=== PATIENT | female | born 1955 | race Two or more races ===

== ENCOUNTER 2017-10-04 18:48 | Inpatient (IN) | payer SELFPAY ==
[2017-10-04 19:36] LABS: ADD MAN DIFF? NO
[2017-10-04 19:38] LABS: BASE EXCESS ABG 3 mmol/L (-3-3); BASO # 0.1 x10^3/uL (0.0-0.2); BASO % 1 % (0-3); EOS # 0.1 x10^3/uL (0.0-0.7); EOS % 1 % (0-3); HCO3 ABG 30 mmol/L (21-28); HEMATOCRIT 31.9 % (36.0-47.0); LYMPH # 1.7 x10^3/uL (1.0-4.8); LYMPH % 19 % (24-48); MEAN CORPUSCULAR HEMOGLOBIN 24 pg (25-35); MEAN CORPUSCULAR HGB CONC 31 g/dL (31-37); MEAN CORPUSCULAR VOLUME 78 fL (79-100); MONO # 0.7 x10^3/uL (0.0-1.1); MONO % 8 % (0-9); NEUT # 6.3 x10^3uL (1.8-7.7); NEUT % 70 % (31-73); PH ABG 7.31 (7.35-7.45); PLATELET COUNT 223 x10^3/uL (140-400); PO2 ABG 82 mmHg (65-108); RED BLOOD COUNT 4.11 x10^6/uL (3.50-5.40); RED CELL DISTRIBUTION WIDTH 17.6 % (11.5-14.5); SAT O2 ABG 94 % (92-99)
[2017-10-04 19:48] LABS: ANION GAP 8 (6-14); BLOOD UREA NITROGEN 32 mg/dL (7-20); BUN/CREATININE RATIO 32 (6-20); CALCIUM 8.7 mg/dL (8.5-10.1); CARBON DIOXIDE 30 mmol/L (21-32); CHLORIDE 98 mmol/L (98-107); GFR 56.2; GLUCOSE 208 mg/dL (70-99); POTASSIUM 5.4 mmol/L (3.5-5.1); SODIUM 136 mmol/L (136-145)
[2017-10-04 19:49] LABS: TROPONIN BY ISTAT 0.09 ng/ml (<0.08)
[2017-10-04 19:53] LABS: ALBUMIN 3.3 g/dL (3.4-5.0); ALBUMIN/GLOBULIN RATIO 0.8 (1.0-1.7); ALK PHOS 70 U/L (46-116); ALT (SGPT) 51 U/L (14-59); AST (SGOT) 42 U/L (15-37); PCO2 ABG 61 mmHg (35-46); TOTAL BILIRUBIN 0.4 mg/dL (0.2-1.0); TOTAL PROTEIN 7.7 g/dL (6.4-8.2)
[2017-10-04 19:58] LABS: TROPONINI 0.125 ng/mL (0.000-0.055)
[2017-10-04 19:59] LABS: NT-PRO BNP 870 pg/mL (0-124)
[2017-10-04] MEDS: ASPIRIN CHEWABLE 81 MG TABLET. PO (20:07)
[2017-10-04] MEDS: FUROSEMIDE 40 MG/4 ML VIAL. IVP (20:30)
[2017-10-04] MEDS ORDERED: IBUPROFEN 400 MG TABLET. PO (20:45)
[2017-10-04] MEDS ORDERED: diphenhydrAMINE HCL 25 MG CAPSULE PO (20:45)
[2017-10-04] MEDS ORDERED: LABETALOL 20 MG/4 ML DISP.SYRIN. IVP (20:45)
[2017-10-04] MEDS ORDERED: ACETAMINOPHEN 500 MG TABLET PO (20:45)
[2017-10-04] MEDS ORDERED: HYDROcodone/APAP 5/325MG 1 TAB TABLET PO (20:45)
[2017-10-04] MEDS ORDERED: ONDANSETRON PF 4 MG/2 ML VIAL. IV (20:45)
[2017-10-04 23:02] LABS: POC GLUCOSE 174 mg/dL (70-99)
[2017-10-05 01:18] LABS: TROPONINI 0.172 ng/mL (0.000-0.055)
[2017-10-05 03:32] LABS: ANION GAP 8 (6-14); BLOOD UREA NITROGEN 32 mg/dL (7-20); CALCIUM 9.1 mg/dL (8.5-10.1); CARBON DIOXIDE 31 mmol/L (21-32); CHLORIDE 100 mmol/L (98-107); CREATININE 0.9 mg/dL (0.6-1.0); GFR 63.4; GLUCOSE 125 mg/dL (70-99); POTASSIUM 4.9 mmol/L (3.5-5.1); SODIUM 139 mmol/L (136-145)
[2017-10-05 03:43] LABS: TROPONINI 0.187 ng/mL (0.000-0.055)
[2017-10-05] MEDS ORDERED: DEXTROSE 50% 25 GM / 50ML DISP.SYRIN. IV (10:45)
[2017-10-05 11:40] LABS: POC GLUCOSE 107 mg/dL (70-99)
[2017-10-05] MEDS: INSULIN ASPART 300 UNITS/3 ML INSULN.PEN SQ ×2 (12:00→16:43)
[2017-10-05] MEDS: amLODIPine BESYLATE 5 MG TABLET PO (14:00)
[2017-10-05] MEDS: LOSARTAN POTASSIUM 50 MG TABLET. PO (14:00)
[2017-10-05 14:46] LABS: % SAT IRON 4 % (15-34); IRON,SERUM 21 ug/dL (50-170)
[2017-10-05 14:58] LABS: VITAMIN-B12 781 pg/mL (247-911)
[2017-10-05] MEDS: BISACODYL 5 MG TABLET.DR. PO (15:52)
[2017-10-05] MEDS: GABAPENTIN 300 MG CAPSULE. PO ×2 (15:52→20:52)
[2017-10-05] MEDS: CYANOCOBALAMIN (VITAMIN B-12) 1,000 MCG TABLET. PO (15:53)
[2017-10-05] MEDS: CHOLECALCIFEROL (VITAMIN D3) 1,000 UNIT TABLET PO (15:53)
[2017-10-05] MEDS: CITALOPRAM 20 MG TABLET. PO (15:54)
[2017-10-05] MEDS: ENOXAPARIN 40 MG/0.4 ML SYRINGE. SQ ×2 (15:54→20:52)
[2017-10-05] MEDS: FUROSEMIDE 40 MG/4 ML VIAL. IVP (15:56)
[2017-10-05 16:42] LABS: POC GLUCOSE 99 mg/dL (70-99)
[2017-10-05 18:40] LABS: POC GLUCOSE 210 mg/dL (70-99)
[2017-10-05 21:01] LABS: POC GLUCOSE 230 mg/dL (70-99)
[2017-10-05 21:08] LABS: BASE EXCESS ABG 10 mmol/L (-3-3); HCO3 ABG 37 mmol/L (21-28); PO2 ABG 76 mmHg (65-108); SAT O2 ABG 94 % (92-99)
[2017-10-05 21:09] LABS: PCO2 ABG 66 mmHg (35-46); PH ABG 7.36 (7.35-7.45)
[2017-10-05 21:10] LABS: FIO2 ABG 36
[2017-10-06 02:09] LABS: CHOLESTEROL 161 mg/dL (0-200); HDLC 48 mg/dL (40-60); LDLC 100 mg/dL (0-100); NON-HDL CHOLESTEROL 113 mg/dL (0-129); TRIGLYCERIDES 67 mg/dL (0-150); VLDLC 13 mg/dL (0-40)
[2017-10-06 02:10] LABS: CHOLESTEROL/HDL RATIO 3.4
[2017-10-06 07:13] LABS: POC GLUCOSE 129 mg/dL (70-99)
[2017-10-06] MEDS: INSULIN ASPART 300 UNITS/3 ML INSULN.PEN SQ ×3 (08:00→17:00)
[2017-10-06 08:09] LABS: POC GLUCOSE 147 mg/dL (70-99)
[2017-10-06] MEDS: CHOLECALCIFEROL (VITAMIN D3) 1,000 UNIT TABLET PO (09:26)
[2017-10-06] MEDS: CYANOCOBALAMIN (VITAMIN B-12) 1,000 MCG TABLET. PO (09:26)
[2017-10-06] MEDS: CITALOPRAM 20 MG TABLET. PO (09:26)
[2017-10-06] MEDS: LOSARTAN POTASSIUM 50 MG TABLET. PO (09:26)
[2017-10-06] MEDS: amLODIPine BESYLATE 5 MG TABLET PO (09:27)
[2017-10-06] MEDS: GABAPENTIN 300 MG CAPSULE. PO ×3 (09:27→21:13)
[2017-10-06] MEDS: POLYETHYLENE GLYCOL 3350 17 GM PACKET. PO (09:27)
[2017-10-06] MEDS: ENOXAPARIN 40 MG/0.4 ML SYRINGE. SQ ×2 (09:31→21:13)
[2017-10-06] MEDS: FUROSEMIDE 40 MG/4 ML VIAL. IVP ×3 (09:31→21:13)
[2017-10-06 11:55] LABS: POC GLUCOSE 253 mg/dL (70-99)
[2017-10-06] MEDS: FERROUS SULFATE 325 MG TABLET. PO (15:31)
[2017-10-06 16:50] LABS: POC GLUCOSE 128 mg/dL (70-99)
[2017-10-06 16:53] LABS: BASE EXCESS ABG 11 mmol/L (-3-3); HCO3 ABG 38 mmol/L (21-28); PH ABG 7.38 (7.35-7.45); PO2 ABG 68 mmHg (65-108); SAT O2 ABG 91 % (92-99)
[2017-10-06 16:56] LABS: FIO2 ABG 36; PCO2 ABG 67 mmHg (35-46)
[2017-10-06 20:40] LABS: POC GLUCOSE 179 mg/dL (70-99)
[2017-10-07 04:42] LABS: ADD MAN DIFF? NO
[2017-10-07 05:12] LABS: ANION GAP 5 (6-14); BLOOD UREA NITROGEN 29 mg/dL (7-20); CALCIUM 9.4 mg/dL (8.5-10.1); CARBON DIOXIDE 39 mmol/L (21-32); CHLORIDE 100 mmol/L (98-107); GLUCOSE 142 mg/dL (70-99); POTASSIUM 4.2 mmol/L (3.5-5.1); SODIUM 144 mmol/L (136-145)
[2017-10-07 05:15] LABS: BASO % 1 % (0-3); EOS # 0.2 x10^3/uL (0.0-0.7); EOS % 3 % (0-3); HEMATOCRIT 32.8 % (36.0-47.0); LYMPH # 1.5 x10^3/uL (1.0-4.8); LYMPH % 25 % (24-48); MEAN CORPUSCULAR HEMOGLOBIN 24 pg (25-35); MEAN CORPUSCULAR HGB CONC 31 g/dL (31-37); MEAN CORPUSCULAR VOLUME 78 fL (79-100); MONO # 0.7 x10^3/uL (0.0-1.1); MONO % 12 % (0-9); NEUT # 3.6 x10^3uL (1.8-7.7); NEUT % 59 % (31-73); PLATELET COUNT 223 x10^3/uL (140-400); RED BLOOD COUNT 4.23 x10^6/uL (3.50-5.40); RED CELL DISTRIBUTION WIDTH 17.8 % (11.5-14.5); WHITE BLOOD COUNT 6.1 x10^3/uL (4.0-11.0)
[2017-10-07] MEDS: INSULIN ASPART 300 UNITS/3 ML INSULN.PEN SQ ×3 (08:00→17:00)
[2017-10-07 08:12] LABS: POC GLUCOSE 158 mg/dL (70-99)
[2017-10-07] MEDS: CITALOPRAM 20 MG TABLET. PO (11:58)
[2017-10-07] MEDS: CHOLECALCIFEROL (VITAMIN D3) 1,000 UNIT TABLET PO (11:58)
[2017-10-07] MEDS: GABAPENTIN 300 MG CAPSULE. PO ×3 (11:58→20:26)
[2017-10-07] MEDS: CYANOCOBALAMIN (VITAMIN B-12) 1,000 MCG TABLET. PO (11:58)
[2017-10-07] MEDS: amLODIPine BESYLATE 5 MG TABLET PO (11:59)
[2017-10-07] MEDS: FERROUS SULFATE 325 MG TABLET. PO (11:59)
[2017-10-07] MEDS: LOSARTAN POTASSIUM 50 MG TABLET. PO (12:01)
[2017-10-07] MEDS: POLYETHYLENE GLYCOL 3350 17 GM PACKET. PO ×2 (12:02→20:26)
[2017-10-07] MEDS: FUROSEMIDE 40 MG/4 ML VIAL. IVP ×2 (12:03→16:57)
[2017-10-07] MEDS: ENOXAPARIN 40 MG/0.4 ML SYRINGE. SQ ×2 (12:15→20:27)
[2017-10-07 12:21] LABS: POC GLUCOSE 235 mg/dL (70-99)
[2017-10-07] MEDS: LUBIPROSTONE 8 MCG CAPSULE PO (16:58)
[2017-10-07 17:14] LABS: POC GLUCOSE 166 mg/dL (70-99)
[2017-10-07 21:00] LABS: POC GLUCOSE 239 mg/dL (70-99)
[2017-10-08] MEDS: FUROSEMIDE 40 MG/4 ML VIAL. IVP (08:43)
[2017-10-08] MEDS: CYANOCOBALAMIN (VITAMIN B-12) 1,000 MCG TABLET. PO (08:43)
[2017-10-08] MEDS: amLODIPine BESYLATE 5 MG TABLET PO (08:43)
[2017-10-08] MEDS: FERROUS SULFATE 325 MG TABLET. PO (08:43)
[2017-10-08] MEDS: ENOXAPARIN 40 MG/0.4 ML SYRINGE. SQ (08:43)
[2017-10-08] MEDS: GABAPENTIN 300 MG CAPSULE. PO (08:43)
[2017-10-08] MEDS: POLYETHYLENE GLYCOL 3350 17 GM PACKET. PO (08:43)
[2017-10-08] MEDS: CITALOPRAM 20 MG TABLET. PO (08:44)
[2017-10-08] MEDS: LUBIPROSTONE 8 MCG CAPSULE PO (08:44)
[2017-10-08] MEDS: LOSARTAN POTASSIUM 50 MG TABLET. PO (08:44)
[2017-10-08] MEDS: CHOLECALCIFEROL (VITAMIN D3) 1,000 UNIT TABLET PO (08:44)
[2017-10-08 08:46] LABS: POC GLUCOSE 152 mg/dL (70-99)
[2017-10-08] MEDS: INSULIN ASPART 300 UNITS/3 ML INSULN.PEN SQ (09:02)
[2017-10-08 11:43] LABS: POC GLUCOSE 251 mg/dL (70-99)
[2017-10-09] MEDS ORDERED: FUROSEMIDE 40 MG TABLET. PO (09:00)
== END 2017-10-08 16:39 | disposition home or self-care (01) | DRG 291 ==
LOC: ER 18:48 → 2 SOUTH 20:35
PROC: 5A09357 Assistance with Respiratory Ventilation, Less than 24 Consecutive Hours, Continuous Positive Airway Pressure (ICD-10-PCS; principal; 2017-10-05)
PROC: 5A09357 Assistance with Respiratory Ventilation, Less than 24 Consecutive Hours, Continuous Positive Airway Pressure (ICD-10-PCS; 2017-10-06)
PROC: 5A09357 Assistance with Respiratory Ventilation, Less than 24 Consecutive Hours, Continuous Positive Airway Pressure (ICD-10-PCS; 2017-10-07)
PROC: 5A09357 Assistance with Respiratory Ventilation, Less than 24 Consecutive Hours, Continuous Positive Airway Pressure (ICD-10-PCS; 2017-10-08)
DX: I11.0 Hypertensive heart disease with heart failure (principal); J96.21 Acute and chronic respiratory failure with hypoxia; E44.1 Mild protein-calorie malnutrition; E66.01 Morbid (severe) obesity due to excess calories; D50.9 Iron deficiency anemia, unspecified; E11.9 Type 2 diabetes mellitus without complications; J96.22 Acute and chronic respiratory failure with hypercapnia; Z68.42 Body mass index [BMI] 45.0-49.9, adult; I50.41 Acute combined systolic (congestive) and diastolic (congestive) heart failure; E87.5 Hyperkalemia; E78.5 Hyperlipidemia, unspecified; F32.9 Major depressive disorder, single episode, unspecified; F41.9 Anxiety disorder, unspecified; G89.29 Other chronic pain; K59.00 Constipation, unspecified; Z80.9 Family history of malignant neoplasm, unspecified; Z83.3 Family history of diabetes mellitus
CPT/HCPCS: 36415; 36600; 71045; 74018; 80048; 80053; 80061; 82607; 82746; 82805; 82962; 83540; 83550; 83880; 84443; 84484; 85025; 93005; 93306; 94660; 94760; 96374; 97162-GP; 97165-GO; 97535-GO; 99285; 99285-25; J1650; J1815; J1940

== ENCOUNTER 2020-04-04 19:08 | Inpatient (IN) | payer SELFPAY ==
[~2020-04-04] VITALS: Ht 152.4 cm; Wt 85.9 kg
[~2020-04-04 19:08] MED LIST: AMLO1TAB95 PO; CHOL10003 PO; CITA40TA5 PO; CYAN-25 PO; FURO40TA4 PO; GABA300C18 PO; HYDR50TA6 PO; LISI-338 PO; LOSA-73 PO; METF10007 PO; NAPR-683 PO; OMEG1CAP38 PO
--- NOTE | 2020-04-04 23:17 | PHYS DOC ---
Past Medical History Past Medical History: Diabetes-Type II, Hypertension, Liver Disease, Other Additional Past Medical Histor: NEUROPATHY Past Surgical History: Other Additional Past Surgical Histo: HERNIA REPAIR Smoking Status: Never Smoker Alcohol Use: None Drug Use: None General Adult EDM: Chief Complaint: DIZZY/LIGHT HEADED HPI: HPI: The history was obtained from the patient and daughter. Patient is a 64-year-old female with PMH hyperlipidemia, hypertension, diabetes who presents with a chief complaint of lightheadedness. Daughter states the patient was seen at her primary care physician's office yesterday and had an outpatient hemoglo bin drawn. She states they were notified that her hemoglobin 7.3. She has no history of anemia. She does not take any blood thinners. She does note some lightheadedness particularly with standing and exertion. Denies chest pain. Denies any known blood in the stool. Denies any history of peptic ulcer disease. Denies any urinary symptoms. States she is never received a trans fusion in the past. States her primary care physician encouraged to report to the emergency department for further care. No other complaints. Review of Systems: Review of Systems: Constitutional: Denies fever or chills. [] Eyes: Denies change in visual acuity. [] HENT: Denies nasal congestion or sore throat. [] Respiratory: Denies cough or shortness of breath. [] Cardiovascular: Denies chest pain or edema. [] GI: Denies abdominal pain, nausea, vomiting, bloody stools or diarrhea. [] : Denies dysuria. [] Musculoskeletal: Denies back pain or joint pain. [] Integument: Denies rash. [] Neurologic: Positive for lightheadedness Endocrine: Denies polyuria or polydipsia. [] Lymphatic: Denies swollen glands. [] Psychiatric: Denies depression or anxiety. [] Heart Score: Risk Factors: Risk Factors: DM, Current or recent (<one month) smoker, HTN, HLP, family history of CAD, obesity. Risk Scores: Score 0 - 3: 2.5% MACE over next 6 weeks - Discharge Home Score 4 - 6: 20.3% MACE over next 6 weeks - Admit for Clinical Observation Score 7 - 10: 72.7% MACE over next 6 weeks - Early Invasive Strategies Allergies: Allergies: Allergies Coded Allergies Type Severity Reaction Last Updated Verified No Known Drug Allergies 3/4/18 No Physical Exam: PE: Constitutional: Well developed, well nourished, no acute distress, non-toxic appearance. [] HENT: Normocephalic, atraumatic, bilateral external ears normal, oropharynx moist, no oral exudates, nose normal. [] Eyes: PERRLA, EOMI, conjunctiva normal, no discharge. [] Neck: Normal range of motion, no tenderness, supple, no stridor. [] Cardiovascular:Heart rate regular rhythm, no murmur [] Lungs & Thorax: Bilateral breath sounds clear to auscultation [] Abdomen: Soft, nontender, nonacute abdomen. No involuntary guarding or rigidity noted. No acute peritonitis. SERVANDO negative for gross blood. Skin: Warm, dry, no erythema, no rash. [] Back: No tenderness, no CVA tenderness. [] Extremities: No tenderness, no cyanosis, no clubbing, ROM intact, no edema. [] Neurologic: Alert and oriented X 3, normal motor function, normal sensory fu nction, no focal deficits noted. [] Psychologic: Affect normal, judgement normal, mood normal. [] Current Patient Data: Labs: Laboratory Tests Test 04/04/20 23:15 White Blood Count 10.4 x10^3/uL Red Blood Count 4.02 x10^6/uL Hemoglobin 7.6 g/dL Hematocrit 24.6 % Mean Corpuscular Volume 61 fL Mean Corpuscular Hemoglobin 19 pg Mean Corpuscular Hemoglobin Concent 31 g/dL Red Cell Distribution Width 19.9 % Platelet Count 352 x10^3/uL Neutrophils (%) (Auto) 60 % Lymphocytes (%) (Auto) 27 % Monocytes (%) (Auto) 9 % Eosinophils (%) (Auto) 3 % Basophils (%) (Auto) 1 % Neutrophils # (Auto) 6.2 x10^3/uL Lymphocytes # (Auto) 2.8 x10^3/uL Monocytes # (Auto) 0.9 x10^3/uL Eosinophils # (Auto) 0.3 x10^3/uL Basophils # (Auto) 0.1 x10^3/uL Platelet Estimate Pending Sodium Level 136 mmol/L Potassium Level 3.6 mmol/L Chloride Level 99 mmol/L Carbon Dioxide Level 32 mmol/L Anion Gap 5 Blood Urea Nitrogen 21 mg/dL Creatinine 1.0 mg/dL Estimated GFR (Cockcroft-Gault) 55.6 Glucose Level 223 mg/dL Calcium Level 8.7 mg/dL Vital Signs: Vital Signs Date Time Temp Pulse Resp B/P (MAP) Pulse Ox O2 Delivery O2 Flow Rate FiO2 04/04/20 21:40 62 18 96 04/04/20 19:48 98.6 123/63 (83) Room Air 98.6 EKG: EKG: EKG consistent with normal sinus rhythm. Ventricular rate of 99 bpm. [place] normal. Intervals normal. No acute ischemic changes appreciated. [] Radiology/Procedures: Radiology/Procedures: [][facility] [address] [place] [address] IMAGING REPORT Signed PATIENT: GRAY SHIELDS ACCOUNT: [id number] : 1955 LOCATION: ER AGE: 64 SEX: F EXAM STATUS: REG ER ORD. PHYSICIAN: SANTIAGO BRITO DO REASON: lightheaded PROCEDURE: CHEST AP ONLY INDICATION: Reason: lightheaded / Spl. Instructions: / History: COMPARISON: October 06, 2017 FINDINGS: Single view of chest obtained. Enlarged cardiomediastinal silhouette. No definite new region of airspace consolidation or pulmonary edema. Degenerative changes left shoulder IMPRESSION: * Enlarged cardiomediastinal silhouette without definite focal airspace consolidation. Electronically signed by: Tevin Jacobs MD (04/04/2020 11:30 PM) [id number] DICTATED and SIGNED BY: TEVIN JACOBS MD DATE: 04/04/20 4160 Course & Med Decision Making: Course & Med Decision Making Pertinent Labs and Imaging studies reviewed. (See chart for details) Patient is a well-appearing 64-year-old female who presents with chief complaint of lab abnormality. She was noted to be anemic with a hemoglobin of 7.3 as an outpatient. She is never been anemic before. Denies any blood in her stool. Initial vital signs unremarkable. Exam noted above. Hemoglobin level today 7.6. No indications for emergent transfusion however she does warrant work-up for her symptomatic anemia. Patient will be hospitalized for further care. Keren Disclaimer: Keren Disclaimer: This electronic medical record was generated, in whole or in part, using a voice recognition dictation system. Departure Departure Impression: Primary Impression: Anemia Qualified Codes: D64.9 - Anemia, unspecified Additional Impression: Lightheaded Disposition: 09 ADMITTED INPATIENT Condition: STABLE Referrals: TERI CALDERON (PCP) Justicifation of Admission Dx: Justifications for Admission: Justification of Admission Dx: Yes Comments: symptomatic anemia SANTIAGO BRITO DO Apr 04, 2020 23:17
[2020-04-04 23:25] LABS: BASO # 0.1 x10^3/uL (0.0-0.2); BASO % 1 % (0-3); EOS # 0.3 x10^3/uL (0.0-0.7); EOS % 3 % (0-3); HEMATOCRIT 24.6 % (36.0-47.0); HEMOGLOBIN 7.6 g/dL (12.0-15.5); LYMPH # 2.8 x10^3/uL (1.0-4.8); LYMPH % 27 % (24-48); MEAN CORPUSCULAR HEMOGLOBIN 19 pg (25-35); MEAN CORPUSCULAR HGB CONC 31 g/dL (31-37); MEAN CORPUSCULAR VOLUME 61 fL (79-100); MONO # 0.9 x10^3/uL (0.0-1.1); MONO % 9 % (0-9); NEUT # 6.2 x10^3/uL (1.8-7.7); NEUT % 60 % (31-73); PLATELET COUNT 352 x10^3/uL (140-400); RED BLOOD COUNT 4.02 x10^6/uL (3.50-5.40); RED CELL DISTRIBUTION WIDTH 19.9 % (11.5-14.5); WHITE BLOOD COUNT 10.4 x10^3/uL (4.0-11.0)
[2020-04-04 23:32] LABS: CALCIUM 8.7 mg/dL (8.5-10.1); GFR 55.6; POTASSIUM 3.6 mmol/L (3.5-5.1)
--- NOTE | 2020-04-04 23:33 | RAD ---
INDICATION: Reason: lightheaded / Spl. Instructions: / History: COMPARISON: October 06, 2017 FINDINGS: Single view of chest obtained. Enlarged cardiomediastinal silhouette. No definite new region of airspace consolidation or pulmonary edema. Degenerative changes left shoulder IMPRESSION: * Enlarged cardiomediastinal silhouette without definite focal airspace consolidation. Electronically signed by: Isaac Knott MD (04/04/2020 11:30 PM) [id number]
[2020-04-04 23:47] LABS: BILIRUBIN,URINE NEGATIVE (NEG); CLARITY,URINE CLEAR; COLOR,URINE YELLOW; NITRITE,URINE NEGATIVE (NEG); PH,URINE 5.5 (<5.0-8.0); PROTEIN,URINE NEGATIVE (NEG-TRACE)
[2020-04-04 23:55] LABS: AMORPHOUS SEDIMENT,UR PRESENT /HPF; BACTERIA,URINE 0 /HPF (0-FEW); HYALINE CASTS, URINE MODERATE /HPF; RBC,URINE OCC /HPF (0-2); SQUAMOUS EPITHELIAL CELL,UR MOD /LPF
[2020-04-05 02:11] LABS: FECAL OB PT NEGATIVE (NEG)
[2020-04-05 03:00] VITALS: BP 128/58
[2020-04-05 05:11] LABS: ANISOCYTOSIS SLIGHT; HYPOCHROMIA MARKED; MICROCYTOSIS MARKED; PLT ESTIMATE ADEQUATE (ADEQUATE); POLYCHROMASIA SLIGHT
--- NOTE | 2020-04-05 05:46 | EKG ---
[facility] [address] [place] [address] Test Date: 2020-04-04 Test Time: 23:08:13 Pat Name: GRAY SHIELDS Department: Room: Gender: F [employer]: : 1955 Requested By: SANTIAGO BRITO Order Number: [id number] Reading MD: Measurements Intervals [place] Rate: 99 P: 7 DC: 150 QRS: 62 QRSD: 74 T: 26 QT: 330 QTc: 423 Interpretive Statements SINUS RHYTHM NORMAL ECG RI6.02 No previous ECG available for comparison
[2020-04-05] MEDS ORDERED: ASPI-886 PO (06:18)
[2020-04-05] MEDS ORDERED: ATOR20TA58 PO (06:18)
[2020-04-05] MEDS ORDERED: LOSA100T14 PO (06:18)
[2020-04-05] MEDS ORDERED: SITA1TAB11 PO (06:18)
[2020-04-05 07:00] VITALS: BP 143/49
[2020-04-05 07:22] LABS: BASO # 0.1 x10^3/uL (0.0-0.2); BASO % 1 % (0-3); EOS # 0.3 x10^3/uL (0.0-0.7); EOS % 4 % (0-3); LYMPH # 2.3 x10^3/uL (1.0-4.8); LYMPH % 30 % (24-48); MEAN CORPUSCULAR HEMOGLOBIN 19 pg (25-35); MEAN CORPUSCULAR HGB CONC 30 g/dL (31-37); MEAN CORPUSCULAR VOLUME 62 fL (79-100); MONO # 0.8 x10^3/uL (0.0-1.1); MONO % 10 % (0-9); NEUT # 4.4 x10^3/uL (1.8-7.7); NEUT % 56 % (31-73); PLATELET COUNT 306 x10^3/uL (140-400); RED BLOOD COUNT 3.75 x10^6/uL (3.50-5.40); RED CELL DISTRIBUTION WIDTH 19.6 % (11.5-14.5); WHITE BLOOD COUNT 7.8 x10^3/uL (4.0-11.0)
[2020-04-05 07:25] LABS: CALCIUM 8.4 mg/dL (8.5-10.1); CREATININE 0.8 mg/dL (0.6-1.0); POTASSIUM 3.7 mmol/L (3.5-5.1)
--- NOTE | 2020-04-05 07:41 | NUR ---
critical Hgb of 7 passed on to LETI Sawyer and LETI Beltran
--- NOTE | 2020-04-05 08:52 | PDOC1 ---
History and Physical Date of Admission Date of Admission DATE: 04/05/20 TIME: 08:52 Identification/Chief Complaint Chief Complaint Dizziness, shortness of breath Source Source: Caregiver, Chart review, Patient History of Present Illness History of Present Illness Ms Lopez is a 64yo F French-speaking only w/ PMHx CHF, HTN, HLD, DM2, OA, depression/anxiety, chronic back pain, hernia repair, Liver Disease who presents with a chief complaint of lightheadedness. Daughter states the patient was seen at her primary care physician's office 04/03/2020 and had an outpatient hemoglobin drawn. She states they were notified that her hemoglobin 7.3. She has no history of anemia. She does not take any blood thinners. She does note some lightheadedness particularly with standing and exertion. Denies chest pain. Denies any known blood in the stool. Denies any history of peptic ulcer disease. Denies any urinary symptoms. States she has never received a transfusion in the past. States her primary care physician encouraged to report to the emergency department for further care. No other complaints. EKG consistent with normal sinus rhythm. Ventricular rate of [address] [place] normal. Intervals normal. No acute ischemic changes appreciated. Hemoglobin level in ED 7.6. Now 7 after overnight observation. Hemoccult stool negative. Iron studies consistent with iron deficiency anemia. Had no vaginal bleeding has been postmenopausal since 2005. MCV was notably 61 labs NA 141, K3.7, BUN 18, CR 0.8, glucose 158. She does note a history of ovarian cancer in her mother and her sister, no known history of colon cancer. Past Medical History Cardiovascular: HTN Endocrine: Diabetes Past Surgical History Past Surgical History: Hernia Repair Family History Family History: Cancer, Diabetes Social History Smoke: No ALCOHOL: none Drugs: None Current Problem List Problem List Problems Medical Problems: (1) Anemia Status: Acute (2) Lightheaded Status: Acute Current Medications Current Medications Current Medications Ondansetron HCl (Zofran) 4 mg PRN Q8HRS PRN IV NAUSEA/VOMITING; Start 04/05/20 at 00:00; Stop 04/05/20 at 08:51; Status DC Ondansetron HCl (Zofran) 4 mg PRN Q4HRS PRN IV NAUSEA/VOMITING; Start 04/05/20 at 09:00; Status UNV Iron Sucrose 200 mg/Sodium Chloride 110 ml @ 55 mls/hr 1X ONCE IV ; Start 04/05/20 at 09:00; Stop 04/05/20 at 10:59; Status UNV Active Scripts Active Furosemide 40 Mg Tablet 40 Mg PO DAILY 30 Days Reported Janumet 50-1,000 Mg Tablet (Sitagliptin Phos/Metformin Hcl) 1 Each Tablet 1 Tab PO BIDWMEALS Losartan Potassium 100 Mg Tablet 100 Mg PO DAILY Atorvastatin Calcium 20 Mg Tablet 20 Mg PO HS Aspirin Ec (Aspirin) 81 Mg Tablet.dr 1 Tab PO DAILY Hydrochlorothiazide Tablet (Hydrochlorothiazide) 50 Mg Tablet 25 Mg PO DAILY Allergies Allergies: Coded Allergies: No Known Drug Allergies (Unverified , 10/04/17) ROS General: No: Chills, Night Sweats, Fatigue, Malaise, Appetite, Other PSYCHOLOGICAL ROS: No: Anxiety, Behavioral Disorder, Concentration difficultie, Decreased libido, Depression, Disorientation, Hallucinations, Hostility, Irritablity, Memory difficulties, Mood Swings, Obsessive thoughts, Physical abuse, Sexual abuse, Sleep disturbances, Suicidal ideation, Other Eyes: No Blurry vision, No Decreased vision, No Double vision, No Dry eyes, No Excessive tearing, No Eye Pain, No Itchy Eyes, No Loss of vision, No P hotophobia, No Scotomata, No Uses contacts, No Uses glasses, No Other HEENT: No: Heacaches, Visual Changes, Hearing change, Nasal congestion, Nasal discharge, Oral lesions, Sinus pain, Sore Throat, Epistaxis, Sneezing, Snoring, Tinnitus, Vertigo, Vocal changes, Other ALLERGY AND IMMUNOLOGY: No: Hives, Insect Bite Sensitivity, Itchy/Watery Eyes, Nasal Congestion, Post Nasal Drip, Seasonal Allergies, Other Hematological and Lymphatic: No: Bleeding Problems, Blood Clots, Blood Transfusions, Brusing, Night Sweats, Pallor, Swollen Lymph Nodes, Other ENDOCRINE: No: Breast Changes, Galactorrhea, Hair Pattern Changes, Hot Flashes, Malaise/lethargy, Mood Swings, Palpitations, Polydipsia/polyuria, Skin Changes, Temperature Intolerance, Unexpected Weight Changes, Other Breast: No New/Changing Breast Lumps, No Nipple changes, No Nipple discharge, No Other Respiratory: YES: Shortness of breath, SOB with excertion; No: Cough, Hemoptysis, Orthopnea, Pleuritic Pain, Sputum Changes, Stridor, Tachypnea, Wheezing, Other Cardiovascular: No Chest Pain, No Palpitations, No Orthopnea, No Paroxysmal Noc. Dyspnea, No Edema, No Lt Headedness, No Other Gastrointestinal: No Nausea, No Vomiting, No Abdominal Pain, No Diarrhea, No Constipation, No Melena, No Hematochezia, No Other Genitourinary: No Dysuria, No Frequency, No Incontinence, No Hematuria, No Retention, No Discharge, No Urgency, No Pain, No Flank Pain, No Other, No , No , No , No , No , No , No Musculoskeletal: No Gait Disturbance, No Joint Pain, No Joint Stiffness, No Joint Swelling, No Muscle Pain, No Muscular Weakness, No Pain In:, No Swelling In:, No Other Neurological: Yes Dizziness; No Behavorial Changes, No Bowel/Bladder ControlChng, No Confusion, No Gait Disturbance, No Headaches, No Impaired Coord/balance, No Memory Loss, No Numbness/Tingling, No Seizures, No Speech Problems, No Tremors, No Visual Changes, No Weakness, No Other Skin: No Dry Skin, No Eczema, No Hair Changes, No Lumps, No Mole Changes, No Mottling, No Nail Changes, No Pruritus, No Rash, No Skin Lesion Changes, No Other, No Acne Physical Exam General: Alert, Oriented X3, Cooperative, mild distress HEENT: Atraumatic, PERRLA Lungs: Clear to auscultation, Normal air movement Heart: S1S2, RRR, no thrills, no rubs, no gallops, no murmurs Abdomen: Normal bowel sounds, Soft, No tenderness, No hepatosplenomegaly, No masses Rectal Exam: not examined Extremities: No clubbing, No cyanosis, No edema, Normal pulses, No tenderness/swelling Skin: No rashes, No breakdown, No significant lesion Neuro: Normal gait, Normal speech, Strength at 5/5 X4 ext, Normal tone, Sensation intact, Cranial nerves 3-12 NL, Reflexes 2+ Psych/Mental Status: Mental status NL, Mood NL Vitals Vitals Vital Signs Date Time Temp Pulse Resp B/P (MAP) Pulse Ox O2 Delivery O2 Flow Rate FiO2 04/05/20 03:00 98.9 101 18 128/58 (81) 95 Room Air 98.9 Labs Labs Laboratory Tests Test 04/04/20 23:15 9/2/20 23:40 04/05/20 00:01 04/05/20 06:25 White Blood Count 10.4 x10^3/uL (4.0-11.0) 7.8 x10^3/uL (4.0-11.0) Red Blood Count 4.02 x10^6/uL (3.50-5.40) 3.75 x10^6/uL (3.50-5.40) Hemoglobin 7.6 g/dL (12.0-15.5) 7.0 g/dL (12.0-15.5) Hematocrit 24.6 % (36.0-47.0) 23.0 % (36.0-47.0) Mean Corpuscular Volume 61 fL (79-100) 62 fL (79-100) Mean Corpuscular Hemoglobin 19 pg (25-35) 19 pg (25-35) Mean Corpuscular Hemoglobin Concent 31 g/dL (31-37) 30 g/dL (31-37) Red Cell Distribution Width 19.9 % (11.5-14.5) 19.6 % (11.5-14.5) Platelet Count 352 x10^3/uL (140-400) 306 x10^3/uL (140-400) Neutrophils (%) (Auto) 60 % (31-73) 56 % (31-73) Lymphocytes (%) (Auto) 27 % (24-48) 30 % (24-48) Monocytes (%) (Auto) 9 % (0-9) 10 % (0-9) Eosinophils (%) (Auto) 3 % (0-3) 4 % (0-3) Basophils (%) (Auto) 1 % (0-3) 1 % (0-3) Neutrophils # (Auto) 6.2 x10^3/uL (1.8-7.7) 4.4 x10^3/uL (1.8-7.7) Lymphocytes # (Auto) 2.8 x10^3/uL (1.0-4.8) 2.3 x10^3/uL (1.0-4.8) Monocytes # (Auto) 0.9 x10^3/uL (0.0-1.1) 0.8 x10^3/uL (0.0-1.1) Eosinophils # (Auto) 0.3 x10^3/uL (0.0-0.7) 0.3 x10^3/uL (0.0-0.7) Basophils # (Auto) 0.1 x10^3/uL (0.0-0.2) 0.1 x10^3/uL (0.0-0.2) Platelet Estimate Adequate (ADEQUATE) Polychromasia Slight Hypochromasia Marked Anisocytosis Slight Microcytosis Marked Sodium Level 136 mmol/L (136-145) 141 mmol/L (136-145) Potassium Level 3.6 mmol/L (3.5-5.1) 3.7 mmol/L (3.5-5.1) Chloride Level 99 mmol/L (98-107) 102 mmol/L (98-107) Carbon Dioxide Level 32 mmol/L (21-32) 32 mmol/L (21-32) Anion Gap 5 (6-14) 7 (6-14) Blood Urea Nitrogen 21 mg/dL (7-20) 18 mg/dL (7-20) Creatinine 1.0 mg/dL (0.6-1.0) 0.8 mg/dL (0.6-1.0) Estimated GFR (Cockcroft-Gault) 55.6 72.0 Glucose Level 223 mg/dL (70-99) 158 mg/dL (70-99) Calcium Level 8.7 mg/dL (8.5-10.1) 8.4 mg/dL (8.5-10.1) Troponin I Quantitative < 0.017 ng/mL (0.000-0.055) Urine Collection Type U cath Urine Color Yellow Urine Clarity Clear Urine pH 5.5 (<5.0-8.0) Urine Specific [place] 1.015 (1.000-1.030) Urine Protein Negative mg/dL (NEG-TRACE) Urine Glucose (UA) Negative mg/dL (NEG) Urine Ketones (Stick) Negative mg/dL (NEG) Urine Blood Negative (NEG) Urine Nitrite Negative (NEG) Urine Bilirubin Negative (NEG) Urine Urobilinogen Dipstick 1.0 mg/dL (0.2 mg/dL) Urine Leukocyte Esterase Trace (NEG) Urine RBC Occ /HPF (0-2) Urine WBC 1-4 /HPF (0-4) Urine Squamous Epithelial Cells Mod /LPF Urine Amorphous Sediment Present /HPF Urine Bacteria 0 /HPF (0-FEW) Urine Hyaline Casts Moderate /HPF Urine Mucus Mod /LPF Stool Occult Blood Negative (NEG) Iron Level 15 ug/dL (50-170) Total Iron Binding Capacity 399 ug/dL (250-450) Iron Saturation 4 % (15-34) Ferritin 5 ng/mL (8-252) Test 04/05/20 08:18 Glucose (Fingerstick) 135 mg/dL (70-99) Laboratory Tests Test 04/04/20 23:15 04/04/20 23:40 04/05/20 00:01 04/05/20 06:25 White Blood Count 10.4 x10^3/uL (4.0-11.0) 7.8 x10^3/uL (4.0-11.0) Red Blood Count 4.02 x10^6/uL (3.50-5.40) 3.75 x10^6/uL (3.50-5.40) Hemoglobin 7.6 g/dL (12.0-15.5) 7.0 g/dL (12.0-15.5) Hematocrit 24.6 % (36.0-47.0) 23.0 % (36.0-47.0) Mean Corpuscular Volume 61 fL (79-100) 62 fL (79-100) Mean Corpuscular Hemoglobin 19 pg (25-35) 19 pg (25-35) Mean Corpuscular Hemoglobin Concent 31 g/dL (31-37) 30 g/dL (31-37) Red Cell Distribution Width 19.9 % (11.5-14.5) 19.6 % (11.5-14.5) Platelet Count 352 x10^3/uL (140-400) 306 x10^3/uL (140-400) Neutrophils (%) (Auto) 60 % (31-73) 56 % (31-73) Lymphocytes (%) (Auto) 27 % (24-48) 30 % (24-48) Monocytes (%) (Auto) 9 % (0-9) 10 % (0-9) Eosinophils (%) (Auto) 3 % (0-3) 4 % (0-3) Basophils (%) (Auto) 1 % (0-3) 1 % (0-3) Neutrophils # (Auto) 6.2 x10^3/uL (1.8-7.7) 4.4 x10^3/uL (1.8-7.7) Lymphocytes # (Auto) 2.8 x10^3/uL (1.0-4.8) 2.3 x10^3/uL (1.0-4.8) Monocytes # (Auto) 0.9 x10^3/uL (0.0-1.1) 0.8 x10^3/uL (0.0-1.1) Eosinophils # (Auto) 0.3 x10^3/uL (0.0-0.7) 0.3 x10^3/uL (0.0-0.7) Basophils # (Auto) 0.1 x10^3/uL (0.0-0.2) 0.1 x10^3/uL (0.0-0.2) Platelet Estimate Adequate (ADEQUATE) Polychromasia Slight Hypochromasia Marked Anisocytosis Slight Microcytosis Marked Sodium Level 136 mmol/L (136-145) 141 mmol/L (136-145) Potassium Level 3.6 mmol/L (3.5-5.1) 3.7 mmol/L (3.5-5.1) Chloride Level 99 mmol/L (98-107) 102 mmol/L (98-107) Carbon Dioxide Level 32 mmol/L (21-32) 32 mmol/L (21-32) Anion Gap 5 (6-14) 7 (6-14) Blood Urea Nitrogen 21 mg/dL (7-20) 18 mg/dL (7-20) Creatinine 1.0 mg/dL (0.6-1.0) 0.8 mg/dL (0.6-1.0) Estimated GFR (Cockcroft-Gault) 55.6 72.0 Glucose Level 223 mg/dL (70-99) 158 mg/dL (70-99) Calcium Level 8.7 mg/dL (8.5-10.1) 8.4 mg/dL (8.5-10.1) Troponin I Quantitative < 0.017 ng/mL (0.000-0.055) Urine Collection Type U cath Urine Color Yellow Urine Clarity Clear Urine pH 5.5 (<5.0-8.0) Urine Specific [place] 1.015 (1.000-1.030) Urine Protein Negative mg/dL (NEG-TRACE) Urine Glucose (UA) Negative mg/dL (NEG) Urine Ketones (Stick) Negative mg/dL (NEG) Urine Blood Negative (NEG) Urine Nitrite Negative (NEG) Urine Bilirubin Negative (NEG) Urine Urobilinogen Dipstick 1.0 mg/dL (0.2 mg/dL) Urine Leukocyte Esterase Trace (NEG) Urine RBC Occ /HPF (0-2) Urine WBC 1-4 /HPF (0-4) Urine Squamous Epithelial Cells Mod /LPF Urine Amorphous Sediment Present /HPF Urine Bacteria 0 /HPF (0-FEW) Urine Hyaline Casts Moderate /HPF Urine Mucus Mod /LPF Stool Occult Blood Negative (NEG) Iron Level 15 ug/dL (50-170) Total Iron Binding Capacity 399 ug/dL (250-450) Iron Saturation 4 % (15-34) Ferritin 5 ng/mL (8-252) Test 04/05/20 08:18 Glucose (Fingerstick) 135 mg/dL (70-99) Images Images CXR: Single view of chest obtained. Enlarged cardiomediastinal silhouette. No definite new region of airspace consolidation or pulmonary edema. Degenerative changes left shoulder IMPRESSION: * Enlarged cardiomediastinal silhouette without definite focal airspace consolidation. VTE Prophylaxis Ordered VTE Prophylaxis Devices: No VTE Pharmacological Prophylaxi: Contraindicated Assessment/Plan Assessment/Plan A/P: Lightheaded and dizzy - symptomatic anemia. Will monitor Hb Shortness of breath - likely from acute anemia - unclear etiology, hemoccult negative Acute anemia - Hb continues to drop. Hemoccult negative, will check LDH, h aptoglobin, retic count. Transfuse if Hb < 7, currently at 7. Will give IV venofer today for iron def h/o diastolic CHF - mild exacerbation currently. Lasix indicated HTN - cont home meds HLD - cont home meds DM2 - sliding scale insulin. Hold metformin in case bleeding scan is necessary OA - hold NSAIDs H/o depression/anxiety - cont home meds H/o hernia repair - stable FEN - ADA diet PPX - SCDs FULL CODE Dispo - inpatient for work-up of acute anemia Justifications for Admission Other Justification DANIELA MA MD Apr 05, 2020 08:52
[2020-04-05] MEDS ORDERED: ONDANSETRON PF 4 MG/2 ML VIAL. IV PRN ×2 (09:00)
[2020-04-05] MEDS ORDERED: IRON SUCROSE COMPLEX 200 MG in IV NORMAL SALINE 100ML 100 ML IV ONE (10:00)
[2020-04-05 11:00] VITALS: BP 135/61
--- NOTE | 2020-04-05 13:17 | NUR ---
SW following. SW spoke with RN and reviewed chart. Pt on room air and IV Zofran. Pt self-pay and [facility] is following. Pt admitted r/t Anemia and Hgb is 7. No anticipated SW needs at discharge. SW available as needed.
--- NOTE | 2020-04-05 14:52 | PDOC2 ---
GI CONSULT Date of Service: DATE: 04/05/20 TIME: 14:42 Reason For Consult: acute anemia HPI: HPI: 61 y/o Northern Irish-speaking female admitted through ER. Translation from family member Kaelyn. We saw her in 2018 for JEAN PAUL - outpt scopes recommended then which she did not pursue. (Has never had EGD or colonoscopy.) To ER w/ lightheadedness. Noted w/ progressive anemia. Denies reflux/heartburn, dysphagia, n/v, abd pain, change in appetite, bloating, weight loss, diarrhea, constipation, hematemesis, hematochezia, and melena. When we saw her last was taking Naproxen - Kaelyn says no longer taking this but does take ASA. No GB, liver, pancreas, or PUD history. PMH: PMH: CHF, HTN, HLD, DM, OA, depression/anxiety, chronic back pain, JEAN PAUL hernia repair FH: Family History: Cancer (mother - unknown kind) Social History: Smoke: No ALCOHOL: none Drugs: None ROS: GEN: Denies fevers, chills, sweats HEENT: Denies blurred vision, sore throat CV: Denies chest pain RESP: Denies shortness of air, cough GI: Per HPI : Denies hematuria, dysuria ENDO: Denies weight changes NEURO: +dizziness MSK: Denies weakness, joint pain/swelling SKIN: Denies jaundice, pruritus Vitals: Vitals: Vital Signs Date Time Temp Pulse Resp B/P (MAP) Pulse Ox O2 Delivery O2 Flow Rate FiO2 04/05/20 11:00 98.4 75 17 135/61 (85) 92 Room Air 98.4 Labs: Labs: Laboratory Tests Test 04/04/20 23:15 04/04/20 23:40 04/05/20 00:01 04/05/20 06:25 White Blood Count 10.4 x10^3/uL (4.0-11.0) 7.8 x10^3/uL (4.0-11.0) Red Blood Count 4.02 x10^6/uL (3.50-5.40) 3.73 x10^6/uL (3.50-5.70) Hemoglobin 7.6 g/dL (12.0-15.5) 7.0 g/dL (12.0-15.5) Hematocrit 24.6 % (36.0-47.0) 23.0 % (36.0-47.0) Mean Corpuscular Volume 61 fL (79-100) 62 fL (79-100) Mean Corpuscular Hemoglobin 19 pg (25-35) 19 pg (25-35) Mean Corpuscular Hemoglobin Concent 31 g/dL (31-37) 30 g/dL (31-37) Red Cell Distribution Width 19.9 % (11.5-14.5) 19.6 % (11.5-14.5) Platelet Count 352 x10^3/uL (140-400) 306 x10^3/uL (140-400) Neutrophils (%) (Auto) 60 % (31-73) 56 % (31-73) Lymphocytes (%) (Auto) 27 % (24-48) 30 % (24-48) Monocytes (%) (Auto) 9 % (0-9) 10 % (0-9) Eosinophils (%) (Auto) 3 % (0-3) 4 % (0-3) Basophils (%) (Auto) 1 % (0-3) 1 % (0-3) Neutrophils # (Auto) 6.2 x10^3/uL (1.8-7.7) 4.4 x10^3/uL (1.8-7.7) Lymphocytes # (Auto) 2.8 x10^3/uL (1.0-4.8) 2.3 x10^3/uL (1.0-4.8) Monocytes # (Auto) 0.9 x10^3/uL (0.0-1.1) 0.8 x10^3/uL (0.0-1.1) Eosinophils # (Auto) 0.3 x10^3/uL (0.0-0.7) 0.3 x10^3/uL (0.0-0.7) Basophils # (Auto) 0.1 x10^3/uL (0.0-0.2) 0.1 x10^3/uL (0.0-0.2) Platelet Estimate Adequate (ADEQUATE) Polychromasia Slight Hypochromasia Marked Anisocytosis Slight Microcytosis Marked Sodium Level 136 mmol/L (136-145) 141 mmol/L (136-145) Potassium Level 3.6 mmol/L (3.5-5.1) 3.7 mmol/L (3.5-5.1) Chloride Level 99 mmol/L (98-107) 102 mmol/L (98-107) Carbon Dioxide Level 32 mmol/L (21-32) 32 mmol/L (21-32) Anion Gap 5 (6-14) 7 (6-14) Blood Urea Nitrogen 21 mg/dL (7-20) 18 mg/dL (7-20) Creatinine 1.0 mg/dL (0.6-1.0) 0.8 mg/dL (0.6-1.0) Estimated GFR (Cockcroft-Gault) 55.6 72.0 Glucose Level 223 mg/dL (70-99) 158 mg/dL (70-99) Calcium Level 8.7 mg/dL (8.5-10.1) 8.4 mg/dL (8.5-10.1) Troponin I Quantitative < 0.017 ng/mL (0.000-0.055) Urine Collection Type U cath Urine Color Yellow Urine Clarity Clear Urine pH 5.5 (<5.0-8.0) Urine Specific [place] 1.015 (1.000-1.030) Urine Protein Negative mg/dL (NEG-TRACE) Urine Glucose (UA) Negative mg/dL (NEG) Urine Ketones (Stick) Negative mg/dL (NEG) Urine Blood Negative (NEG) Urine Nitrite Negative (NEG) Urine Bilirubin Negative (NEG) Urine Urobilinogen Dipstick 1.0 mg/dL (0.2 mg/dL) Urine Leukocyte Esterase Trace (NEG) Urine RBC Occ /HPF (0-2) Urine WBC 1-4 /HPF (0-4) Urine Squamous Epithelial Cells Mod /LPF Urine Amorphous Sediment Present /HPF Urine Bacteria 0 /HPF (0-FEW) Urine Hyaline Casts Moderate /HPF Urine Mucus Mod /LPF Stool Occult Blood Negative (NEG) Absolute Reticulocyte Count 0.068 x10^6/uL (0.020-0.120) Percent Reticulocyte Count 1.8 % (0.5-2.3) Immature Reticulocyte Fraction 0.56 (0.20-0.60) Iron Level 15 ug/dL (50-170) Total Iron Binding Capacity 399 ug/dL (250-450) Iron Saturation 4 % (15-34) Ferritin 5 ng/mL (8-252) Lactate Dehydrogenase 171 U/L (81-234) Test 04/05/20 08:18 04/05/20 12:10 Glucose (Fingerstick) 135 mg/dL (70-99) 161 mg/dL (70-99) Allergies: Coded Allergies: No Known Drug Allergies (Unverified , 10/04/17) Medications: Current Medications Medications (Trade) Dose Ordered Sig/Mary Route PRN Reason Start Time Stop Time Status Last Admin Dose Admin Iron Sucrose 200 mg/Sodium Chloride 110 ml @ 55 mls/hr 1X ONCE IV 04/05/20 10:00 04/05/20 11:59 DC 04/05/20 10:44 Imaging: Imaging: CXR 04/04 IMPRESSION: * Enlarged cardiomediastinal silhouette without definite focal airspace consolidation. PE: GEN: NAD - getting Venofer HEENT: Atraumatic, PERRL LUNGS: CTAB HEART: bradycardic ABD: NABS, S/ND/NT EXTREMITY: No edema SKIN: No rashes, no jaundice NEURO/PSYCH: A & O 3 A/P: A/P: Lightheadedness JEAN PAUL - chronic/progressive - no obvious bleeding, Hemoccult negative CRC screen - none ASA use -- Offered EGD - pt wants to think about it. Will check COVID just in case - updated nurse - make NPO at midnight if decides wants EGD. Will also check CT r/o uterine fibroid, etc. KENNETH CHERY Apr 05, 2020 14:52
[2020-04-05 15:00] VITALS: BP 174/56
[2020-04-05] MEDS: LINAGLIPTIN 5 MG TABLET PO SCH (16:26)
[2020-04-05] MEDS: LOSARTAN POTASSIUM 50 MG TABLET. PO SCH (16:26)
[2020-04-05] MEDS ORDERED: metFORMIN 500 MG TABLET PO SCH (17:00)
--- NOTE | 2020-04-05 17:05 | RAD ---
CT scan of the abdomen and pelvis without contrast 04/05/2020 CLINICAL HISTORY: Iron deficiency anemia. Pelvic fullness. TECHNIQUE: Unenhanced, contiguous, 5 mm axial sections were obtained through the abdomen and pelvis. One or more of the following individualized dose reduction techniques were utilized for this study: 1. Automated exposure control. 2. Adjustment of the mA and/or kV according to patient size. 3. Use of iterative reconstruction technique. FINDINGS: Images through the lung bases demonstrate mild cardiomegaly. Linear bands of subsegmental atelectasis and/or scarring are seen involving both lower lobes. A 6 mm calcification is seen involving the medial aspect of the left lower lobe which may represent a calcified granuloma versus a calcified pleural plaque. A 1.8 cm rounded low-attenuation lesion is seen involving the superior aspect of the right lower liver. This may represent a hemangioma. The spleen, pancreas adrenal glands and kidneys are within normal limits. Atherosclerotic calcification abdominal aorta is seen. The abdominal aorta tapers normally. A partially calcified gallstone is seen within the gallbladder. Air and stool are seen throughout the colon. There is no evidence of bowel obstruction. A fat-containing ventral hernia is seen involving the lower midline anterior abdominal wall. This measures 8.2 cm in size. Images through the pelvis demonstrate the urinary bladder distended with urine. Calcifications are seen within the uterus which likely reflect fibroids. These measure 3 mm to 1.1 cm in size. Calcifications are seen within the adnexa which measure 3 mm to 1 cm in size. No free fluid is noted. Mild to moderate S-shaped curvature of the thoracolumbar spine is seen. Degenerative changes are seen involving lower thoracic and throughout the lumbar spine and both hips. IMPRESSION: 1. Cholelithiasis. 2. Small calcified uterine fibroids. 3. Fat-containing ventral hernia. 4. No acute abnormality is seen. Electronically signed by: Tad Calloway MD (04/05/2020 5:02 PM) [id number]
[2020-04-05 19:00] VITALS: BP 137/64
[2020-04-05] MEDS ORDERED: ATORVASTATIN CALCIUM 20 MG TABLET PO SCH (21:00)
[2020-04-05 23:00] VITALS: BP 149/67
[2020-04-06] VITALS (12 sets, daily range): BP systolic 101–147; BP diastolic 38–90
[2020-04-06] MEDS ORDERED: ACETAMINOPHEN 325 MG TABLET. PO PRN (01:00)
[2020-04-06 06:23] LABS: HEMATOCRIT 23.6 % (36.0-47.0); HEMOGLOBIN 7.2 g/dL (12.0-15.5)
--- NOTE | 2020-04-06 08:05 | PDOC ---
[facility] PROGRESS NOTE Date of Service DOS: DATE: 04/06/20 TIME: 08:02 Chief Complaint Chief Complaint A/P: Lightheaded and dizzy - symptomatic anemia. Will monitor Hb Shortness of breath - likely from acute anemia - unclear etiology, hemoccult negative Acute anemia - Hb continues to drop. Hemoccult negative, will check LDH, haptoglobin, retic count. Transfuse if Hb < 7, currently at 7. Will give IV venofer today for iron def h/o diastolic CHF - mild exacerbation currently. Lasix indicated HTN - cont home meds HLD - cont home meds DM2 - sliding scale insulin. Hold metformin in case bleeding scan is necessary OA - hold NSAIDs H/o depression/anxiety - cont home meds H/o hernia repair - stable FEN - ADA diet PPX - SCDs FULL CODE Dispo - inpatient for work-up of acute anemia History of Present Illness History of Present Illness Ms Lopez is a 64yo F Haitian-speaking only w/ PMHx CHF, HTN, HLD, DM2, OA, depression/anxiety, chronic back pain, hernia repair, Liver Disease who presents with a chief complaint of lightheadedness. Daughter states the patient was seen at her primary care physician's office 04/03/2020 and had an outpatient hemoglobin drawn. She states they were notified that her hemoglobin 7.3. She has no history of anemia. She does not take any blood thinners. She does note some lightheadedness particularly with standing and exertion. Denies chest pain. Denies any known blood in the stool. Denies any history of peptic ulcer disease. Denies any urinary symptoms. States she has never received a transfusion in the past. States her primary care physician encouraged to report to the emergency department for further care. No other complaints. EKG consistent with normal sinus rhythm. Ventricular rate of 99 bpm. [place] normal. Intervals normal. No acute ischemic changes appreciated. Hemoglobin level in ED 7.6. Now 7 after overnight observation. Hemoccult stool negative. Iron studies consistent with iron deficiency anemia. Had no vaginal bleeding has been postmenopausal since 2005. MCV was notably 61 labs NA 141, K3.7, BUN 18, CR 0.8, glucose 158. She does note a history of ovarian cancer in her mother and her sister, no known history of colon cancer. Hb 7.2. LDH within normal limits and haptoglobin within normal limits, no signs of hemolysis. Reticulocyte count normal. CT abdomen/pelvis with cholelithiasis, small calcified uterine fibroids, full bladder, and fat-containing ventral hernia, otherwise no acute abnormality is seen. B12 low in 200s. Plan: Replace B12 1x venofer Encourage EGD and colonoscopy F/u CBC in 2 weeks 325mg PO iron + ascorbic acid 500mg Vitals/I&O Vitals/I&O: Vital Signs Date Time Temp Pulse Resp B/P (MAP) Pulse Ox O2 Delivery O2 Flow Rate FiO2 04/06/20 03:00 98.6 80 18 137/64 (88) 90 Room Air 98.6 I & O 04/05/20 04/05/20 04/06/20 15:00 23:00 07:00 Intake Total 180 ml 0 ml Balance 180 ml 0 ml Physical Exam General: Alert, Oriented X3, Cooperative, mild distress Lungs: Clear Abdomen: Normal bowel sounds, Soft, No tenderness, No hepatosplenomegaly, No masses Extremities: No clubbing, No cyanosis, No edema, Normal pulses, No tenderness/swelling Skin: No rashes, No breakdown, No significant lesion Labs Labs: Laboratory Tests Test 04/05/20 08:18 04/05/20 12:10 04/05/20 17:02 04/05/20 21:13 Glucose (Fingerstick) 135 mg/dL (70-99) 161 mg/dL (70-99) 188 mg/dL (70-99) 193 mg/dL (70-99) Test 04/06/20 05:50 04/06/20 07:51 Hemoglobin 7.2 g/dL (12.0-15.5) Hematocrit 23.6 % (36.0-47.0) Mean Corpuscular Hemoglobin Concent 31 g/dL (31-37) Glucose (Fingerstick) 147 mg/dL (70-99) Assessment and Plan Assessmemt and Plan Problems Medical Problems: (1) Anemia Status: Acute (2) Lightheaded Status: Acute Comment Review of Relevant I have reviewed the following items raya (where applicable) has been applied. Medications: Current Medications Medications (Trade) Dose Ordered Sig/Mary Route PRN Reason Start Time Stop Time Status Last Admin Dose Admin Iron Sucrose 200 mg/Sodium Chloride 110 ml @ 55 mls/hr 1X ONCE IV 04/05/20 10:00 04/05/20 11:59 DC 04/05/20 10:44 Atorvastatin Calcium (Lipitor) 20 mg HS PO 04/05/20 21:00 04/05/20 21:02 Losartan Potassium (Cozaar) 100 mg DAILY PO 04/05/20 14:00 04/05/20 16:26 Linagliptin (Tradjenta) 5 mg DAILY PO 04/05/20 14:00 04/05/20 16:26 Acetaminophen (Tylenol) 650 mg PRN Q6HRS PRN PO PAIN 04/06/20 01:00 04/06/20 01:14 Images: FINDINGS: Images through the lung bases demonstrate mild cardiomegaly. Linear bands of subsegmental atelectasis and/or scarring are seen involving both lower lobes. A 6 mm calcification is seen involving the medial aspect of the left lower lobe which may represent a calcified granuloma versus a calcified pleural plaque. A 1.8 cm rounded low-attenuation lesion is seen involving the superior aspect of the right lower liver. This may represent a hemangioma. The spleen, pancreas adrenal glands and kidneys are within normal limits. Atherosclerotic calcification abdominal aorta is seen. The abdominal aorta tapers normally. A partially calcified gallstone is seen within the gallbladder. Air and stool are seen throughout the colon. There is no evidence of bowel obstruction. A fat-containing ventral hernia is seen involving the lower midline anterior abdominal wall. This measures 8.2 cm in size. Images through the pelvis demonstrate the urinary bladder distended with urine. Calcifications are seen within the uterus which likely reflect fibroids. These measure 3 mm to 1.1 cm in size. Calcifications are seen within the adnexa which measure 3 mm to 1 cm in size. No free fluid is noted. Mild to moderate S-shaped curvature of the thoracolumbar spine is seen. Degenerative changes are seen involving lower thoracic and throughout the lumbar spine and both hips. IMPRESSION: 1. Cholelithiasis. 2. Small calcified uterine fibroids. 3. Fat-containing ventral hernia. 4. No acute abnormality is seen. Justifications for Admission Other Justification DANIELA MA MD Apr 06, 2020 08:05
[2020-04-06] MEDS: LOSARTAN POTASSIUM 50 MG TABLET. PO SCH (09:37)
[2020-04-06] MEDS: LINAGLIPTIN 5 MG TABLET PO SCH (09:37)
--- NOTE | 2020-04-06 10:49 | PDOC ---
Date of Service: DATE: 04/06/20 TIME: 10:45 Objective: Objective: D/w nurse - hesitant to pursue any further testing, got teary-eyed before CT, doesn't want EGD. Vital Signs: Vital Signs Date Time Temp Pulse Resp B/P (MAP) Pulse Ox O2 Delivery O2 Flow Rate FiO2 04/06/20 09:37 77 134/90 04/06/20 07:15 98.2 16 94 Room Air 98.2 Labs: Laboratory Tests Test 04/05/20 12:10 04/05/20 17:02 04/05/20 21:13 04/06/20 07:51 Glucose (Fingerstick) 161 mg/dL (70-99) 188 mg/dL (70-99) 193 mg/dL (70-99) 147 mg/dL (70-99) Imaging: CT A/P IMPRESSION: 1. Cholelithiasis. 2. Small calcified uterine fibroids. 3. Fat-containing ventral hernia. 4. No acute abnormality is seen. PE: GEN: in restroom twice when I went by A/P: JEAN PAUL - chronic/progressive - no obvious bleeding, Hemoccult negative -- Still not interested in EGD. CT as above w/ small fibroids. Would give chronic iron supplementation. Justicifation of Admission Dx: Justifications for Admission: Justification of Admission Dx: Yes KENNETH CHERY Apr 06, 2020 10:49
[2020-04-06] MEDS ORDERED: CYANOCOBALAMIN (VITAMIN B-12) 1,000 MCG/ML VIAL IM ONE (11:15)
[2020-04-06] MEDS ORDERED: CYAN-25 PO (11:18)
--- NOTE | 2020-04-06 11:28 | PDOC3 ---
Discharge Summary Visit Information Date of Admission: Apr 05, 2020 Date of Discharge: Apr 06, 2020 Admitting Diagnosis: Symptomatic anemia Final Diagnosis Problems Medical Problems: (1) Anemia Status: Acute (2) Lightheaded Status: Acute Brief Hospital Course Allergies Allergies Coded Allergies Type Severity Reaction Last Updated Verified No Known Drug Allergies 10/04/17 No Vital Signs Vital Signs Date Time Temp Pulse Resp B/P (MAP) Pulse Ox O2 Delivery O2 Flow Rate FiO2 04/06/20 09:37 77 134/90 04/06/20 07:15 98.2 16 94 Room Air 98.2 Lab Results Laboratory Tests Test 04/04/20 23:15 04/04/20 23:40 04/05/20 00:01 04/05/20 06:20 White Blood Count 10.4 x10^3/uL (4.0-11.0) Red Blood Count 4.02 x10^6/uL (3.50-5.40) Hemoglobin 7.6 g/dL (12.0-15.5) Hematocrit 24.6 % (36.0-47.0) Mean Corpuscular Volume 61 fL (79-100) Mean Corpuscular Hemoglobin 19 pg (25-35) Mean Corpuscular Hemoglobin Concent 31 g/dL (31-37) Red Cell Distribution Width 19.9 % (11.5-14.5) Platelet Count 352 x10^3/uL (140-400) Neutrophils (%) (Auto) 60 % (31-73) Lymphocytes (%) (Auto) 27 % (24-48) Monocytes (%) (Auto) 9 % (0-9) Eosinophils (%) (Auto) 3 % (0-3) Basophils (%) (Auto) 1 % (0-3) Neutrophils # (Auto) 6.2 x10^3/uL (1.8-7.7) Lymphocytes # (Auto) 2.8 x10^3/uL (1.0-4.8) Monocytes # (Auto) 0.9 x10^3/uL (0.0-1.1) Eosinophils # (Auto) 0.3 x10^3/uL (0.0-0.7) Basophils # (Auto) 0.1 x10^3/uL (0.0-0.2) Platelet Estimate Adequate (ADEQUATE) Polychromasia Slight Hypochromasia Marked Anisocytosis Slight Microcytosis Marked Sodium Level 136 mmol/L (136-145) Potassium Level 3.6 mmol/L (3.5-5.1) Chloride Level 99 mmol/L (98-107) Carbon Dioxide Level 32 mmol/L (21-32) Anion Gap 5 (6-14) Blood Urea Nitrogen 21 mg/dL (7-20) Creatinine 1.0 mg/dL (0.6-1.0) Estimated GFR (Cockcroft-Gault) 55.6 Glucose Level 223 mg/dL (70-99) Calcium Level 8.7 mg/dL (8.5-10.1) Troponin I Quantitative < 0.017 ng/mL (0.000-0.055) Urine Collection Type U cath Urine Color Yellow Urine Clarity Clear Urine pH 5.5 (<5.0-8.0) Urine Specific [place] 1.015 (1.000-1.030) Urine Protein Negative mg/dL (NEG-TRACE) Urine Glucose (UA) Negative mg/dL (NEG) Urine Ketones (Stick) Negative mg/dL (NEG) Urine Blood Negative (NEG) Urine Nitrite Negative (NEG) Urine Bilirubin Negative (NEG) Urine Urobilinogen Dipstick 1.0 mg/dL (0.2 mg/dL) Urine Leukocyte Esterase Trace (NEG) Urine RBC Occ /HPF (0-2) Urine WBC 1-4 /HPF (0-4) Urine Squamous Epithelial Cells Mod /LPF Urine Amorphous Sediment Present /HPF Urine Bacteria 0 /HPF (0-FEW) Urine Hyaline Casts Moderate /HPF Urine Mucus Mod /LPF Stool Occult Blood Negative (NEG) Haptoglobin 249 mg/dL (37-355) Test 04/05/20 06:25 04/05/20 08:18 04/05/20 12:10 04/05/20 17:02 White Blood Count 7.8 x10^3/uL (4.0-11.0) Red Blood Count 3.73 x10^6/uL (3.50-5.70) Hemoglobin 7.0 g/dL (12.0-15.5) Hematocrit 23.0 % (36.0-47.0) Mean Corpuscular Volume 62 fL (79-100) Mean Corpuscular Hemoglobin 19 pg (25-35) Mean Corpuscular Hemoglobin Concent 30 g/dL (31-37) Red Cell Distribution Width 19.6 % (11.5-14.5) Platelet Count 306 x10^3/uL (140-400) Neutrophils (%) (Auto) 56 % (31-73) Lymphocytes (%) (Auto) 30 % (24-48) Monocytes (%) (Auto) 10 % (0-9) Eosinophils (%) (Auto) 4 % (0-3) Basophils (%) (Auto) 1 % (0-3) Neutrophils # (Auto) 4.4 x10^3/uL (1.8-7.7) Lymphocytes # (Auto) 2.3 x10^3/uL (1.0-4.8) Monocytes # (Auto) 0.8 x10^3/uL (0.0-1.1) Eosinophils # (Auto) 0.3 x10^3/uL (0.0-0.7) Basophils # (Auto) 0.1 x10^3/uL (0.0-0.2) Absolute Reticulocyte Count 0.068 x10^6/uL (0.020-0.120) Percent Reticulocyte Count 1.8 % (0.5-2.3) Immature Reticulocyte Fraction 0.56 (0.20-0.60) Sodium Level 141 mmol/L (136-145) Potassium Level 3.7 mmol/L (3.5-5.1) Chloride Level 102 mmol/L (98-107) Carbon Dioxide Level 32 mmol/L (21-32) Anion Gap 7 (6-14) Blood Urea Nitrogen 18 mg/dL (7-20) Creatinine 0.8 mg/dL (0.6-1.0) Estimated GFR (Cockcroft-Gault) 72.0 Glucose Level 158 mg/dL (70-99) Calcium Level 8.4 mg/dL (8.5-10.1) Iron Level 15 ug/dL (50-170) Total Iron Binding Capacity 399 ug/dL (250-450) Iron Saturation 4 % (15-34) Ferritin 5 ng/mL (8-252) Lactate Dehydrogenase 171 U/L (81-234) Glucose (Fingerstick) 135 mg/dL (70-99) 161 mg/dL (70-99) 188 mg/dL (70-99) Test 04/05/20 21:13 04/06/20 05:50 04/06/20 07:51 Glucose (Fingerstick) 193 mg/dL (70-99) 147 mg/dL (70-99) Hemoglobin 7.2 g/dL (12.0-15.5) Hematocrit 23.6 % (36.0-47.0) Mean Corpuscular Hemoglobin Concent 31 g/dL (31-37) Vitamin B12 Level 268 pg/mL (247-911) Thyroid Stimulating Hormone (TSH) 1.149 uIU/mL (0.358-3.74) Laboratory Tests Test 04/05/20 12:10 04/05/20 17:02 04/05/20 21:13 04/06/20 05:50 Glucose (Fingerstick) 161 mg/dL (70-99) 188 mg/dL (70-99) 193 mg/dL (70-99) Hemoglobin 7.2 g/dL (12.0-15.5) Hematocrit 23.6 % (36.0-47.0) Mean Corpuscular Hemoglobin Concent 31 g/dL (31-37) Vitamin B12 Level 268 pg/mL (247-911) Thyroid Stimulating Hormone (TSH) 1.149 uIU/mL (0.358-3.74) Test 04/06/20 07:51 Glucose (Fingerstick) 147 mg/dL (70-99) Brief Hospital Course Ms Lopez is a 64yo F Polish-speaking only w/ PMHx CHF, HTN, HLD, DM2, OA, depression/anxiety, chronic back pain, hernia repair, Liver Disease who presents with a chief complaint of lightheadedness. Daughter states the patient was seen at her primary care physician's office 04/03/2020 and had an outpatient hemoglobin drawn. She states they were notified that her hemoglobin 7.3. She has no history of anemia. She does not take any blood thinners. She does note some lightheadedness particularly with standing and exertion. Denies chest pain. Denies any known blood in the stool. Denies any history of peptic ulcer disease. Denies any urinary symptoms. States she has never received a transfusion in the past. States her primary care physician encouraged to report to the emergency department for further care. No other complaints. EKG consistent with normal sinus rhythm. Ventricular rate of 99 bpm. [place] normal. Intervals normal. No acute ischemic changes appreciated. Hemoglobin level in ED 7.6. Now 7 after overnight observation. Hemoccult stool negative. Iron studies consistent with iron deficiency anemia. Had no vaginal bleeding has been postmenopausal since 2005. MCV was notably 61 labs NA 141, K3.7, BUN 18, CR 0.8, glucose 158. She does note a history of ovarian cancer in her mother and her sister, no known history of colon cancer. Hb 7.2. LDH within normal limits and haptoglobin within normal limits, no signs of hemolysis. Reticulocyte count normal. CT abdomen/pelvis with cholelithiasis, small calcified uterine fibroids, full bladder, and fat-containing ventral hernia, otherwise no acute abnormality is seen. B12 low in 200s. Consults: GI Problem list: Lightheaded and dizzy - symptomatic anemia. Will monitor Hb Shortness of breath - likely from acute anemia - unclear etiology, hemoccult negative Acute anemia - Hb continues to drop. Hemoccult negative, will check LDH, haptoglobin, retic count. Transfuse if Hb < 7, currently at 7. Will give IV venofer today for iron def h/o diastolic CHF - mild exacerbation currently. Lasix indicated B12 deficiency HTN - cont home meds HLD - cont home meds DM2 - sliding scale insulin. Hold metformin in case bleeding scan is necessary OA - hold NSAIDs H/o depression/anxiety - cont home meds H/o hernia repair - stable Plan: Replace B12 1x venofer Encourage EGD and colonoscopy F/u CBC in 2 weeks 325mg PO iron + ascorbic acid 500mg Greater Discharge Information Condition at Discharge: Improved Follow Up: Weeks Disposition/Orders: D/C to Home Scheduled Aspirin (Aspirin Ec) 81 Mg Tablet.dr, 1 TAB PO DAILY for heart, #30 Ref 3 (Reported) Entered as Reported by: BELINDA RAPP on 04/05/20617 Last Action: Reviewed on 04/05/20618 by BELINDA RAPP Atorvastatin Calcium (Atorvastatin Calcium) 20 Mg Tablet, 20 MG PO HS for FOR CHOLESTEROL, #30 Ref 0 (Reported) Entered as Reported by: BELINDA RAPP on 04/05/20617 Last Action: Continued on 04/05/201332 by DANIELA MA MD Cyanocobalamin (Vitamin B-12) (Vitamin B-12) 1,000 Mcg Tablet, 1,000 MCG PO DAILY for B12 deficiency for 30 Days, #30 Ref 11 Prescribed by: DANIELA MA MD on 04/06/20 1118 Losartan Potassium (Losartan Potassium) 100 Mg Tablet, 100 MG PO DAILY for HYPERTENSION, (Reported) Entered as Reported by: BELINDA RAPP on 04/05/20617 Last Action: Converted on 04/05/201332 by DANIELA MA MD Sitagliptin Phos/Metformin Hcl (Janumet 50-1,000 Mg Tablet) 1 Each Tablet, 1 TAB PO BIDWMEALS for fsbs, #60 Ref 5 (Reported) Entered as Reported by: BELINDA RAPP on 04/05/20617 Last Action: Converted on 04/05/201332 by DANIELA MA MD Discontinued Medications Furosemide (Furosemide) 40 Mg Tablet, 40 MG PO DAILY for 30 Days, #30 Prescribed by: JIMMY BARKSDALE MD on 10/08/17 1353 Last Action: Reviewed on 04/05/20617 by BELINDA RAPP Hydrochlorothiazide (Hydrochlorothiazide Tablet) 50 Mg Tablet, 25 MG PO DAILY for DIURETIC, Ref 0 (Reported) Entered as Reported by: FRANK FAUSTIN on 10/05/17 0204 Last Action: Reviewed on 04/05/20617 by BELINDA RAPP Justicifation of Admission Dx: Justifications for Admission: Justification of Admission Dx: Yes DANIELA MA MD Apr 06, 2020 11:28
[2020-04-06] MEDS ORDERED: IV RINGERS,LACTATED 1000ML 1,000 ML IV ONE (12:30)
[2020-04-06] MEDS ORDERED: IRON SUCROSE COMPLEX 200 MG in IV NORMAL SALINE 100ML 100 ML IV ONE (13:00)
[2020-04-06] MEDS ORDERED: PROPOFOL 10 MG/ML (20ML) VIAL. IV ONE (13:49)
--- NOTE | 2020-04-06 14:04 | PDOC4 ---
PROCEDURE Procedure EGD/biopsies Indication: JEAN PAUL/unknown source/reluctant to do colonoscopy Meds: per anesthesia Findings: E--Normal. GEJ at 40cm. G--few scattered erosions in antrum. Biopsies re: H.pylori. D--Normal to second portion. Biopsies taken. Leo. well. IMP: Gastric erosions Antrum and duodenum biopsied. REC: Await biopsies. Should have colonoscopy. BLAKE PLUNKETT MD Apr 06, 2020 14:04
--- NOTE | 2020-04-06 15:43 | NUR ---
SW following. SW spoke with RN and reviewed chart. Pt on room air and hemiglobin level is improving per RN. Pt will likely discharge today self-care. No further SW needs at this time.
--- NOTE | 2020-04-06 17:30 | NUR ---
Discharge Note: Patient was discharged home with self care. Patients IV was discontinued without any complication per [employer]. Patient's daughter at the bedside at the time of discharge education. Discharge education was completed in patients primary language, Maori. Patient was given discharge summary/instructions, follow-ups, and educational material. Patients prescription was sent to patients preferred pharmacy. Patient and daughter did not have any further questions. Patient was taken down to the main entrance via wheelchair with all personal belongings accompanied by ELIANA Gonzalez, where her daughter was waiting to take her home.
[2020-04-07] MEDS ORDERED: CYANOCOBALAMIN (VITAMIN B-12) 1,000 MCG TABLET. PO SCH (09:00)
--- NOTE | 2020-04-13 11:08 | PATHOLOGY ---
[facility] Accession Number: [id number] . 01 Material submitted: . PART A: duodenum - DUODENAL BIOPSY PART B: stomach - ANTRUM BIOPSY . 01 Clinical history: . ANEMIA,EGD . 02 Diagnosis: A. Small bowel "duodenum", endoscopic biopsy: - Duodenal mucosa without significant pathologic alteration. . B. Stomach "antrum", endoscopic biopsy: - Gastric oxyntic mucosa with features of mild chronic gastritis. - Negative for intestinal metaplasia, dysplasia, and malignancy. - NEGATIVE for Helicobacter pylori. (MLK:jorge; 04/13/2020) [facility] 04/13/2020 1042 Local . 02 Electronically signed: . Gaurav Trimble MD, Pathologist NPI- [id number] . 01 Gross description: . A. Received in formalin labeled "Oriedelmira, Kelly, duodenal BX" is a 0.5 x 0.4 x 0.1 cm aggregate of barnard-brown soft tissue fragments. The specimen is submitted entirely in A1. . B. Received in formalin labeled "Oritz, Kelly, antrum BX" is a 1.2 x 0.3 x 0.1 cm aggregate of barnard-brown soft tissue fragments. The specimen is submitted entirely in B1. [place] [place]06/[place] [facility] 04/06/20201958 Local . 02 Microscopic: . Immunohistochemical stain results (block B1) - Helicobacter pylori - negative for organisms. (MLK:jorge; 04/13/2020) . 02 Pathologist provided ICD-10: K29.50, D64.9 . 02 CPT . 835823, 307613, G71821 Specimen Comment: A courtesy copy of this report has been sent to [phone], [phone] Specimen Comment: [phone], Specimen Comment: Report sent to ,,,/ Performed at: [address] [id number] MD Pardeep Jara MD Phone: [phone] Performed at: 02 [facility] [address] [place], [place] [id number] MD Pedro Lopez MD Phone: [phone]
== END 2020-04-06 18:00 | disposition home or self-care (01) | DRG 811 ==
LOC: ER 19:08 → 5 NORTH 04-05 00:32
PROVIDERS: ADMIT Internal Medicine; ATTEND Internal Medicine
PROC: 0DB68ZX Excision of Stomach, Via Natural or Artificial Opening Endoscopic, Diagnostic (ICD-10-PCS; principal; 2020-04-05)
DX: D50.9 Iron deficiency anemia, unspecified (principal); I50.33 Acute on chronic diastolic (congestive) heart failure; K25.9 Gastric ulcer, unspecified as acute or chronic, without hemorrhage or perforation; D25.9 Leiomyoma of uterus, unspecified; E11.9 Type 2 diabetes mellitus without complications; E53.8 Deficiency of other specified B group vitamins; E78.5 Hyperlipidemia, unspecified; F32.9 Major depressive disorder, single episode, unspecified; F41.9 Anxiety disorder, unspecified; Z20.828 Contact with and (suspected) exposure to other viral communicable diseases; G89.29 Other chronic pain; I11.0 Hypertensive heart disease with heart failure; K43.9 Ventral hernia without obstruction or gangrene; K80.20 Calculus of gallbladder without cholecystitis without obstruction; Z79.82 Long term (current) use of aspirin; Z80.41 Family history of malignant neoplasm of ovary; Z83.3 Family history of diabetes mellitus; G62.9 Polyneuropathy, unspecified
CPT/HCPCS: 36415; 43239; 71045; 74176; 80048; 81001; 82274; 82607; 82728; 82962; 83010; 83540; 83550; 83615; 84443; 84484; 85014; 85018; 85025; 85045; 86850; 86900; 86901; 87086; 87426; 88305; 88342; 93005; 96365; J1756; J2704; J3420; J7120; 99285-25; G0378; U0003-CS

== ENCOUNTER 2021-04-21 16:48 | Inpatient (IN) | payer SELFPAY ==
[~2021-04-21] VITALS: Ht 154.9 cm; Wt 91.9 kg
[~2021-04-21 16:48] MED LIST changes: +ASPI-886 PO; +ATOR20TA58 PO; -HYDR50TA6 PO; +HYDR50TA9 PO; -LISI-338 PO; +LISI-517 PO; +LOSA100T14 PO; +SITA1TAB11 PO
--- NOTE | 2021-04-21 19:28 | ED.ADGEN ---
Past Medical History Past Medical History: Diabetes-Type II, Hypertension, Liver Disease, Other Additional Past Medical Histor: NEUROPATHY Past Surgical History: Other Additional Past Surgical Histo: HERNIA REPAIR Smoking Status: Never Smoker Alcohol Use: None Drug Use: None General Adult EDM: Chief Complaint: DIZZY/LIGHT HEADED HPI: HPI: Patient is a 65 year old female coming in for 1 month of worsening dizziness. Patient states everything is spinning when she tries to get up. Patient states that when she lays down it improves but takes a very long time to completely go away and does not always completely go away. Denies any headaches or vision changes. Denies any diplopia. Patient states that 1 year ago she was admitted for anemia and felt the same at that time. Says the onset has been gradual worsening. Patient takes a baby aspirin daily but denies any other NSAIDs or blood thinners. Patient states that she has had black stools since she has been taking iron and denies any blood. States she had many tests done including an EGD which did not find a source of bleeding. Patient is fully vaccinated against Covid, received her second Pfizer vaccine about 2 months ago Review of Systems: Review of Systems: All other systems within normal limits except for as noted in the HPI Current Medications: Current Medications Medications (Trade) Dose Ordered Sig/Mary Start Time Stop Time Status Last Admin Dose Admin Iohexol (Omnipaque 300 Mg/ml) 75 ml 1X ONCE 04/21/21 19:45 04/21/21 19:53 DC 04/21/21 19:45 75 ML Magnesium Sulfate 50 ml @ 25 mls/hr 1X ONCE 04/21/21 20:45 04/21/21 22:44 DC 04/21/21 20:59 25 MLS/HR Meclizine HCl (Antivert) 25 mg 1X ONCE 04/21/21 21:15 04/21/21 21:16 DC 04/21/21 21:55 25 MG Sodium Chloride 1,000 ml @ 1,000 mls/hr 1X ONCE 04/21/21 20:45 04/21/21 21:44 DC 04/21/21 20:59 1,000 MLS/HR Allergies: Allergies: Allergies Coded Allergies Type Severity Reaction Last Updated Verified No Known Drug Allergies 10/04/17 No Physical Exam: PE: Constitutional: Well developed, well nourished, no acute distress, non-toxic appearance. [] HENT: Normocephalic, atraumatic, bilateral external ears normal, nose normal. [] Eyes: PERRLA, conjunctiva normal, no discharge. [] Neck: No rigidity, supple, no stridor. [] Cardiovascular: Regular rate and rhythm, brisk cap refill [] Lungs & Thorax: Non labored symmetric respirations, no tachypnea or respiratory distress [] Abdomen: Soft, nondistended. Skin: Warm, dry, no erythema, no rash. [] Back: Unremarkable Extremities: No deformities, range of motion grossly intact, no lower extremity edema [] Neurologic: Alert and oriented X 3, no focal deficits noted. [] Psychologic: Affect normal, judgement normal, mood normal. [] Current Patient Data: Labs: Laboratory Tests Test 04/21/21 19:38 04/21/21 20:54 White Blood Count 11.7 x10^3/uL (4.0-11.0) H Red Blood Count 4.18 x10^6/uL (3.50-5.40) Hemoglobin 9.9 g/dL (12.0-15.5) L Hematocrit 31.9 % (36.0-47.0) L Mean Corpuscular Volume 76 fL (79-100) L Mean Corpuscular Hemoglobin 24 pg (25-35) L Mean Corpuscular Hemoglobin Concent 31 g/dL (31-37) Red Cell Distribution Width 17.3 % (11.5-14.5) H Platelet Count 411 x10^3/uL (140-400) H Neutrophils (%) (Auto) 62 % (31-73) Lymphocytes (%) (Auto) 26 % (24-48) Monocytes (%) (Auto) 8 % (0-9) Eosinophils (%) (Auto) 3 % (0-3) Basophils (%) (Auto) 1 % (0-3) Neutrophils # (Auto) 7.3 x10^3/uL (1.8-7.7) Lymphocytes # (Auto) 3.1 x10^3/uL (1.0-4.8) Monocytes # (Auto) 0.9 x10^3/uL (0.0-1.1) Eosinophils # (Auto) 0.3 x10^3/uL (0.0-0.7) Basophils # (Auto) 0.2 x10^3/uL (0.0-0.2) Sodium Level 138 mmol/L (136-145) Potassium Level 4.3 mmol/L (3.5-5.1) Chloride Level 101 mmol/L (98-107) Carbon Dioxide Level 28 mmol/L (21-32) Anion Gap 9 (6-14) Blood Urea Nitrogen 22 mg/dL (7-20) H Creatinine 0.9 mg/dL (0.6-1.0) Estimated GFR (Cockcroft-Gault) 62.6 BUN/Creatinine Ratio 24 (6-20) H Glucose Level 80 mg/dL (70-99) Calcium Level 9.3 mg/dL (8.5-10.1) Phosphorus Level 3.7 mg/dL (2.6-4.7) Magnesium Level 1.3 mg/dL (1.8-2.4) L Total Bilirubin 0.2 mg/dL (0.2-1.0) Aspartate Amino Transferase (AST) 17 U/L (15-37) Alanine Aminotransferase (ALT) 35 U/L (14-59) Alkaline Phosphatase 64 U/L (46-116) Troponin I Quantitative < 0.017 ng/mL (0.000-0.055) RY-Tkq-W-Type Natriuretic Peptide 152 pg/mL (0-124) H Total Protein 7.6 g/dL (6.4-8.2) Albumin 3.3 g/dL (3.4-5.0) L Albumin/Globulin Ratio 0.8 (1.0-1.7) L Urine Collection Type Unknown Urine Color Yellow Urine Clarity Cloudy Urine pH 5.5 (<5.0-8.0) Urine Specific Bridgman 1.010 (1.000-1.030) Urine Protein Negative mg/dL (NEG-TRACE) Urine Glucose (UA) Negative mg/dL (NEG) Urine Ketones (Stick) Negative mg/dL (NEG) Urine Blood Negative (NEG) Urine Nitrite Negative (NEG) Urine Bilirubin Negative (NEG) Urine Urobilinogen Dipstick 0.2 mg/dL (0.2 mg/dL) Urine Leukocyte Esterase Small (NEG) Urine RBC 0 /HPF (0-2) Urine WBC 11-20 /HPF (0-4) Urine Squamous Epithelial Cells Mod /LPF Urine Bacteria Few /HPF (0-FEW) Laboratory Tests 04/21/21 19:38 Laboratory Tests 04/21/21 19:38 Vital Signs: Vital Signs Date Time Temp Pulse Resp B/P (MAP) Pulse Ox O2 Delivery O2 Flow Rate FiO2 04/21/21 21:41 94 23 135/91 (106) 94 Room Air 04/21/21 19:09 98.6 98.6 EKG: EKG: Sinus rhythm, heart rate 84 bpm, normal axis, no ST elevation or depression, no ectopy [] Heart Score: C/O Chest Pain: No HEART Score for Chest Pain: HEART Score for Chest Pain Response (Comments) Value History Slighlty/Non-Suspicious 0 ECG Nonspecific Repolarizatio 1 Age >45 - < 65 1 Risk Factors 1 or 2 Risk Factors 1 Troponin < Normal Limit 0 Total 3 Risk Factors: Risk Factors: DM, Current or recent (<one month) smoker, HTN, HLP, family history of CAD, obesity. Risk Scores: Score 0 - 3: 2.5% MACE over next 6 weeks - Discharge Home Score 4 - 6: 20.3% MACE over next 6 weeks - Admit for Clinical Observation Score 7 - 10: 72.7% MACE over next 6 weeks - Early Invasive Strategies Radiology/Procedures: Radiology/Procedures: [facility] [address] [place] [address] IMAGING REPORT Signed PATIENT: GRAY SHIELDS ACCOUNT: [id number] : 1955 LOCATION: ER AGE: 65 SEX: F EXAM STATUS: REG ER ORD. PHYSICIAN: RIAZ TEJEDA MD REASON: vertigo, persisent PROCEDURE: CT ANGIOGRAPHY HEAD AND NECK STUDY: CT angiography of the head and neck INDICATION: Vertigo. COMPARISON: None. TECHNIQUE: Axial CT imaging of the head and neck utilizing angiography protocol and performed after the intravenous administration of contrast. Precontrast imaging through the head was performed as well. Multiplanar reformats and 3D MIP acquisitions were obtained. Encountered areas of stenosis are measured per NASCET criteria. One or more of the following individualized dose reduction techniques were utilized for this examination: 1. Automated exposure control 2. Adjustment of the mA and/or kV according to patient size 3. Use of iterative reconstruction technique. FINDINGS: CT HEAD: No acute intracranial hemorrhage. No CT evidence for an acute cortical infarction. No localized mass effect, midline shift or hydrocephalus. Parenchymal volume loss. Chronic focus of mineralization along the periphery of the right frontal lobe. White matter findings most frequently related to chronic microvascular ischemic change. Normally aerated mastoid air cells and paranasal sinuses. CTA NECK: Arch/Proximal Great Vessels: Scattered calcified and noncalcified atheromatous plaque. No dissection or aneurysm at the arch. Common origin of the brach iocephalic and left common carotid arteries. No ostial stenosis. No flow- limiting stenosis of either common carotid artery. Carotid Bifurcation/Cervical ICA: No hemodynamically significant stenosis of either cervical ICA in the setting of calcified and noncalcified atheromatous plaque at the right slightly more so than left carotid bifurcations. Vertebral Arteries: The left vertebral artery is slightly dominant. The proximal portion of both vertebral arteries are difficult to characterize due to patient body habitus and streak artifact. There is some calcific atherosclerosis at the right vertebral artery origin but without a definitive significant stenosis. No obvious dissection. A component of venous contamination also degrades the study. CTA HEAD: Posterior Circulation: The left intracranial vertebral artery is slightly dominant. Both vertebral arteries are patent and contribute to basilar flow. The basilar artery is patent. physiology on the right. Patent posterior communicating artery on the left as well but there is a faintly visualized left P1 segment. No occlusion or flow-limiting stenosis of the central posterior cerebral artery branches. The distal branches are not well evaluated. Anterior Circulation: Intracranial internal carotid artery calcific atherosclero sis. Mild/less than 50 percent resultant stenoses. No branch vessel occlusion or flow-limiting stenosis of the adequately assessed middle or anterior cerebral arteries. Veins: Patent dural sinuses. Developmentally hypoplastic transverse sinus on the right. MISCELLANEOUS: Mild groundglass infiltrates at the upper lungs. No well delineated solid nodule. No lymphadenopathy. Advanced multilevel degenerative changes of the visualized spine. At least mild to moderate central canal stenosis at most cervical levels. There is also narrowing of the canal at the upper thoracic spine particularly at T2-T3. The extent of stenosis isn't fully characterized by technique. Varying degree of osseous neural foraminal stenosis at multiple levels. IMPRESSION: CT Head: 1. No acute intracranial hemorrhage or CT evidence for an acute cortical infarction. CT Angio Neck: 1. Limited evaluation due to patient body habitus particularly of the proximal vertebral arteries. 2. Taking the above into consideration, no dissection or hemodynamically significant stenosis seen throughout the neck. The vertebral arteries are relatively small which likely is in part from persistent physiology. 3. Advanced degenerative changes throughout the cervical and upper thoracic spine with at least moderate central canal stenosis at several levels but not fully characterized. Mainly mild to moderate osseous neural foraminal stenosis as well. 4. Faint groundglass infiltrates at the upper lungs. These could be chronic though a mild atypical infectious process is possible in the appropriate clinical setting. CT Angio Head: 1. No large vessel occlusion or central flow-limiting stenosis seen throughout the anterior or posterior cerebral circulation to help explain the patient's reported vertigo. Consider MRI if there is further concern. Electronically signed by: EDGARDO VANEGAS MD (04/21/2021 9:38 PM) [facility] DICTATED and SIGNED BY: EDGARDO VANEGAS MD DATE: 04/21/21 [id number] [][facility] [address] [place] [address] IMAGING REPORT Signed PATIENT: GRAY SHIELDS ACCOUNT: [id number] : 1955 LOCATION: ER AGE: 65 SEX: F EXAM STATUS: REG ER ORD. PHYSICIAN: RIAZ TEJEDA MD REASON: vertigo, persisent non- code stroke PROCEDURE: CT CODE STROKE HEAD WO STUDY: CT angiography of the head and neck INDICATION: Vertigo. COMPARISON: None. TECHNIQUE: Axial CT imaging of the head and neck utilizing angiography protocol and performed after the intravenous administration of contrast. Precontrast imaging through the head was performed as well. Multiplanar reformats and 3D MIP acquisitions were obtained. Encountered areas of stenosis are measured per NASCET criteria. One or more of the following individualized dose reduction techniques were utilized for this examination: 1. Automated exposure control 2. Adjustment of the mA and/or kV according to patient size 3. Use of iterative reconstruction technique. FINDINGS: CT HEAD: No acute intracranial hemorrhage. No CT evidence for an acute cortical infarction. No localized mass effect, midline shift or hydrocephalus. Parenchymal volume loss. Chronic focus of mineralization along the periphery of the right frontal lobe. White matter findings most frequently related to chronic microvascular ischemic change. Normally aerated mastoid air cells and paranasal sinuses. CTA NECK: Arch/Proximal Great Vessels: Scattered calcified and noncalcified atheromatous plaque. No dissection or aneurysm at the arch. Common origin of the brachiocephalic and left common carotid arteries. No ostial stenosis. No flow- limiting stenosis of either common carotid artery. Carotid Bifurcation/Cervical ICA: No hemodynamically significant stenosis of either cervical ICA in the setting of calcified and noncalcified atheromatous plaque at the right slightly more so than left carotid bifurcations. Vertebral Arteries: The left vertebral artery is slightly dominant. The proximal portion of both vertebral arteries are difficult to characterize due to patient body habitus and streak artifact. There is some calcific atherosclerosis at the right vertebral artery origin but without a definitive significant stenosis. No obvious dissection. A component of venous contamination also degrades the study. CTA HEAD: Posterior Circulation: The left intracranial vertebral artery is slightly dom inant. Both vertebral arteries are patent and contribute to basilar flow. The basilar artery is patent. physiology on the right. Patent posterior communicating artery on the left as well but there is a faintly visualized left P1 segment. No occlusion or flow-limiting stenosis of the central posterior cerebral artery branches. The distal branches are not well evaluated. Anterior Circulation: Intracranial internal carotid artery calcific atherosclerosis. Mild/less than 50 percent resultant stenoses. No branch vessel occlusion or flow-limiting stenosis of the adequately assessed middle or anterior cerebral arteries. Veins: Patent dural sinuses. Developmentally hypoplastic transverse sinus on the right. MISCELLANEOUS: Mild groundglass infiltrates at the upper lungs. No well delineated solid nodule. No lymphadenopathy. Advanced multilevel degenerative changes of the visualized spine. At least mild to moderate central canal stenosis at most cervical levels. There is also narrowing of the canal at the upper thoracic spine particularly at T2-T3. The extent of stenosis isn't fully characterized by technique. Varying degree of osseous neural foraminal stenosis at multiple levels. IMPRESSION: CT Head: 1. No acute intracranial hemorrhage or CT evidence for an acute cortical inf arction. CT Angio Neck: 1. Limited evaluation due to patient body habitus particularly of the proximal vertebral arteries. 2. Taking the above into consideration, no dissection or hemodynamically s ignificant stenosis seen throughout the neck. The vertebral arteries are relatively small which likely is in part from persistent physiology. 3. Advanced degenerative changes throughout the cervical and upper thoracic spine with at least moderate central canal stenosis at several levels but not fully characterized. Mainly mild to moderate osseous neural foraminal stenosis as well. 4. Faint groundglass infiltrates at the upper lungs. These could be chronic though a mild atypical infectious process is possible in the appropriate clinical setting. CT Angio Head: 1. No large vessel occlusion or central flow-limiting stenosis seen throughout the anterior or posterior cerebral circulation to help explain the patient's reported vertigo. Consider MRI if there is further concern. Electronically signed by: EDGARDO VANEGAS MD (04/21/2021 9:38 PM) [facility] DI[facility]ATED and SIGNED BY: EDGARDO VANEGAS MD DATE: 04/21/[id number] 0 [facility] [address] [place] [address] IMAGING REPORT Signed PATIENT: GRAY SHIELDS ACCOUNT: [id number] : 1955 LOCATION: ER AGE: 65 SEX: F EXAM STATUS: REG ER ORD. PHYSICIAN: RIAZ TEJEDA MD REASON: light headed PROCEDURE: CHEST AP ONLY EXAMINATION: XR CHEST 1V CLINICAL HISTORY: Lightheaded EXAM DATE/TIME: 04/21/2021 7:35 PM COMPARISON: 04/22/2020 FINDINGS: Lines, Tubes, and Devices: None. Cardiomediastinal Silhouette: Mild cardiomegaly. Aortic atherosclerotic calcification. Lungs and Pleura: Bilateral hazy and patchy opacities in the mid and lower lung zones. No definite pleural effusion. Pulmonary vasculature within normal limits. Bones and Soft Tissues: Degenerative changes of the thoracic spine. IMPRESSION: Mild bilateral airspace disease as described. Electronically signed by: Marco Antonio De Santiago DO (04/21/2021 9:11 PM) [facility] DICTATED and SIGNED BY: MARCO ANTONIO DE SANTIAGO DO DATE: 04/21/[id number] 0 Course & Med Decision Making: Course & Med Decision Making Pertinent Labs and Imaging studies reviewed. (See chart for details) Patient with vertigo with insidious onset difficulty walking, concern for posterior stroke. Admit to hospitalist for neuro and MRI. [] Keren Disclaimer: Dragjose Disclaimer: This electronic medical record was generated, in whole or in part, using a voice recognition dictation system. Departure Departure Impression: Primary Impression: Vertigo Disposition: ADMITTED INPATIENT Admitting Physician: YOLANDA Condition: STABLE Referrals: TERI CALDERONP-DEANNE (PCP) RIAZ TEJEDA MD Apr 21, 2021 19:28
[2021-04-21] MEDS ORDERED: IOHEXOL 300 MG/ML 100ML VIAL. IV ONE (19:45)
[2021-04-21 19:46] LABS: BASO # 0.2 x10^3/uL (0.0-0.2); BASO % 1 % (0-3); EOS # 0.3 x10^3/uL (0.0-0.7); EOS % 3 % (0-3); HEMATOCRIT 31.9 % (36.0-47.0); HEMOGLOBIN 9.9 g/dL (12.0-15.5); LYMPH # 3.1 x10^3/uL (1.0-4.8); LYMPH % 26 % (24-48); MEAN CORPUSCULAR HEMOGLOBIN 24 pg (25-35); MEAN CORPUSCULAR HGB CONC 31 g/dL (31-37); MEAN CORPUSCULAR VOLUME 76 fL (79-100); MONO # 0.9 x10^3/uL (0.0-1.1); MONO % 8 % (0-9); NEUT # 7.3 x10^3/uL (1.8-7.7); NEUT % 62 % (31-73); PLATELET COUNT 411 x10^3/uL (140-400); RED BLOOD COUNT 4.18 x10^6/uL (3.50-5.40); RED CELL DISTRIBUTION WIDTH 17.3 % (11.5-14.5); WHITE BLOOD COUNT 11.7 x10^3/uL (4.0-11.0)
[2021-04-21 19:57] LABS: CALCIUM 9.3 mg/dL (8.5-10.1); CREATININE 0.9 mg/dL (0.6-1.0); GFR 62.6; POTASSIUM 4.3 mmol/L (3.5-5.1)
[2021-04-21 20:03] LABS: ALBUMIN 3.3 g/dL (3.4-5.0); ALBUMIN/GLOBULIN RATIO 0.8 (1.0-1.7); MAGNESIUM 1.3 mg/dL (1.8-2.4); PHOSPHORUS 3.7 mg/dL (2.6-4.7); TOTAL BILIRUBIN 0.2 mg/dL (0.2-1.0); TOTAL PROTEIN 7.6 g/dL (6.4-8.2)
[2021-04-21] MEDS ORDERED: IV NORMAL SALINE 1000ML BAG 1,000 ML IV ONE (20:45)
[2021-04-21] MEDS ORDERED: MAGNESIUM SULFATE 2GM 50 ML IV ONE (20:45)
[2021-04-21 21:02] LABS: BILIRUBIN,URINE NEGATIVE (NEG); CLARITY,URINE CLOUDY; COLOR,URINE YELLOW; NITRITE,URINE NEGATIVE (NEG); PH,URINE 5.5 (<5.0-8.0); PROTEIN,URINE NEGATIVE (NEG-TRACE); UROBILINOGEN,URINE 0.2 mg/dL (0.2 mg/dL)
--- NOTE | 2021-04-21 21:13 | RAD ---
EXAMINATION: XR CHEST 1V CLINICAL HISTORY: Lightheaded EXAM DATE/TIME: 04/21/2021 7:35 PM COMPARISON: 04/22/2020 FINDINGS: Lines, Tubes, and Devices: None. Cardiomediastinal Silhouette: Mild cardiomegaly. Aortic atherosclerotic calcification. Lungs and Pleura: Bilateral hazy and patchy opacities in the mid and lower lung zones. No definite pl eural effusion. Pulmonary vasculature within normal limits. Bones and Soft Tissues: Degenerative changes of the thoracic spine. IMPRESSION: Mild bilateral airspace disease as described. Electronically signed by: Marco Antonio Triplett DO (04/21/2021 9:11 PM) [facility]
[2021-04-21 21:14] LABS: BACTERIA,URINE FEW /HPF (0-FEW); RBC,URINE 0 /HPF (0-2)
[2021-04-21] MEDS ORDERED: MECLIZINE HCL 12.5 MG TABLET. PO ONE (21:15)
--- NOTE | 2021-04-21 21:40 | RAD ---
STUDY: CT angiography of the head and neck INDICATION: Vertigo. COMPARISON: None. TECHNIQUE: Axial CT imaging of the head and neck utilizing angiography protocol and performed after t he intravenous administration of contrast. Precontrast imaging through the head was performed as well . Multiplanar reformats and 3D MIP acquisitions were obtained. Encountered areas of stenosis are merritt ured per NASCET criteria. One or more of the following individualized dose reduction techniques were utilized for this examinat ion: 1. Automated exposure control 2. Adjustment of the mA and/or kV according to patient size 3. Use of iterative reconstruction technique. FINDINGS: CT HEAD: No acute intracranial hemorrhage. No CT evidence for an acute cortical infarction. No localized mass effect, midline shift or hydrocephalus. Parenchymal volume loss. Chronic focus of mineralization francisco j g the periphery of the right frontal lobe. White matter findings most frequently related to chronic m icrovascular ischemic change. Normally aerated mastoid air cells and paranasal sinuses. CTA NECK: Arch/Proximal Great Vessels: Scattered calcified and noncalcified atheromatous plaque. No dissection or aneurysm at the arch. Common origin of the brachiocephalic and left common carotid arteries. No os tial stenosis. No flow-limiting stenosis of either common carotid artery. Carotid Bifurcation/Cervical ICA: No hemodynamically significant stenosis of either cervical ICA in t he setting of calcified and noncalcified atheromatous plaque at the right slightly more so than left carotid bifurcations. Vertebral Arteries: The left vertebral artery is slightly dominant. The proximal portion of both vert ebral arteries are difficult to characterize due to patient body habitus and streak artifact. There i s some calcific atherosclerosis at the right vertebral artery origin but without a definitive signifi cant stenosis. No obvious dissection. A component of venous contamination also degrades the study. CTA HEAD: Posterior Circulation: The left intracranial vertebral artery is slightly dominant. Both vertebral ar teries are patent and contribute to basilar flow. The basilar artery is patent. physiology on t he right. Patent posterior communicating artery on the left as well but there is a faintly visualized left P1 segment. No occlusion or flow-limiting stenosis of the central posterior cerebral artery bra nches. The distal branches are not well evaluated. Anterior Circulation: Intracranial internal carotid artery calcific atherosclerosis. Mild/less than 5 0 percent resultant stenoses. No branch vessel occlusion or flow-limiting stenosis of the adequately assessed middle or anterior cerebral arteries. Veins: Patent dural sinuses. Developmentally hypoplastic transverse sinus on the right. MISCELLANEOUS: Mild groundglass infiltrates at the upper lungs. No well delineated solid nodule. No lymphadenopathy. Advanced multilevel degenerative changes of the visualized spine. At least mild to moderate central canal stenosis at most cervical levels. There is also narrowing of the canal at the upper thoracic sp ine particularly at T2-T3. The extent of stenosis isn't fully characterized by technique. Varying deg ree of osseous neural foraminal stenosis at multiple levels. IMPRESSION: CT Head: 1. No acute intracranial hemorrhage or CT evidence for an acute cortical infarction. CT Angio Neck: 1. Limited evaluation due to patient body habitus particularly of the proximal vertebral arteries. 2. Taking the above into consideration, no dissection or hemodynamically significant stenosis seen t hroughout the neck. The vertebral arteries are relatively small which likely is in part from persiste nt physiology. 3. Advanced degenerative changes throughout the cervical and upper thoracic spine with at least mode rate central canal stenosis at several levels but not fully characterized. Mainly mild to moderate os seous neural foraminal stenosis as well. 4. Faint groundglass infiltrates at the upper lungs. These could be chronic though a mild atypical i nfectious process is possible in the appropriate clinical setting. CT Angio Head: 1. 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 Consider MRI if there is fur ther concern. Electronically signed by: EDGARDO VANEGAS MD (04/21/2021 9:38 PM) [facility]
[2021-04-21] MEDS ORDERED: ACETAMINOPHEN 325 MG TABLET. PO PRN (22:45)
[2021-04-21] MEDS ORDERED: ONDANSETRON PF 4 MG/2 ML VIAL. IVP PRN (22:45)
[2021-04-21] MEDS ORDERED: MORPHINE SULFATE 2 MG/ML INJ. IVP PRN (22:45)
[2021-04-22] VITALS (7 sets, daily range): BP systolic 131–144; BP diastolic 53–77
--- NOTE | 2021-04-22 00:25 | EKG ---
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
[2021-04-22 07:30] LABS: BASO % 1 % (0-3); EOS # 0.3 x10^3/uL (0.0-0.7); EOS % 4 % (0-3); HEMATOCRIT 28.5 % (36.0-47.0); HEMOGLOBIN 9.1 g/dL (12.0-15.5); LYMPH # 1.9 x10^3/uL (1.0-4.8); LYMPH % 29 % (24-48); MEAN CORPUSCULAR HEMOGLOBIN 24 pg (25-35); MEAN CORPUSCULAR HGB CONC 32 g/dL (31-37); MEAN CORPUSCULAR VOLUME 76 fL (79-100); MONO # 0.6 x10^3/uL (0.0-1.1); MONO % 9 % (0-9); NEUT # 3.8 x10^3/uL (1.8-7.7); NEUT % 58 % (31-73); PLATELET COUNT 357 x10^3/uL (140-400); RED BLOOD COUNT 3.77 x10^6/uL (3.50-5.40); RED CELL DISTRIBUTION WIDTH 17.3 % (11.5-14.5); WHITE BLOOD COUNT 6.5 x10^3/uL (4.0-11.0)
[2021-04-22 07:42] LABS: CALCIUM 9.3 mg/dL (8.5-10.1); CREATININE 0.7 mg/dL (0.6-1.0); GFR 83.7; POTASSIUM 4.2 mmol/L (3.5-5.1)
--- NOTE | 2021-04-22 08:48 | PDOC2 ---
NEUROLOGY CONSULT Date of Service DOS: DATE: 04/22/21 TIME: 08:40 Reason for Consult Reason for Consult: Vertigo Referring Physician Referring Physician: Dr. Mcgee Source Source: Chart review, Patient History of Present Illness History of Present Illness The patient is a 65-year-old right-handed female who has had vertigo for the past month or 2. Vertigo occurs with movement to either side. If she lies still lying down it does improve some. There is no dysarthria, dysphagia, diplopia, numbness, weakness, tinnitus, hearing loss, or cognitive change. She does have some mild headache, but without photo phonophobia or nausea. She has never had migraines. There is no history of stroke, seizure, or head injury. Past Medical History Cardiovascular: CHF, HTN, Hyperlipidemia CENTRAL NERVOUS SYSTEM: Periperal neuropathy Hepatobiliary: Other (Fatty liver) Psych: Anxiety, Depression Musculoskeletal: low back pain, Osteoarthritis Endocrine: Diabetes Past Surgical History Past Surgical History: Hernia Repair Family History Family History: No pertinent hx Social History Social History , retired, no alcohol Current Medications Current Medications Current Medications Iohexol (Omnipaque 300 Mg/ml) 75 ml 1X ONCE IV Last administered on 04/21/21at 19:45; Start 04/21/21 at 19:45; Stop 04/21/21 at 19:53; Status DC Magnesium Sulfate 50 ml @ 25 mls/hr 1X ONCE IV Last administered on 04/21/21at 20:59; Start 04/21/21 at 20:45; Stop 04/21/21 at 22:44; Status DC Sodium Chloride 1,000 ml @ 1,000 mls/hr 1X ONCE IV Last administered on 04/21/21at 20:59; Start 04/21/21 at 20:45; Stop 04/21/21 at 21:44; Status DC Meclizine HCl (Antivert) 25 mg 1X ONCE PO Last administered on 04/21/21at 21:55; Start 04/21/21 at 21:15; Stop 04/21/21 at 21:16; Status DC Ondansetron HCl (Zofran) 4 mg PRN Q8HRS PRN IVP NAUSEA/VOMITING; Start 04/21/21 at 22:45; Stop 04/22/21 at 22:44 Morphine Sulfate (Morphine Sulfate) 2 mg PRN Q2HR PRN IVP PAIN; Start 04/21/21 at 22:45; Stop 04/22/21 at 22:44 Acetaminophen (Tylenol) 650 mg PRN Q4HRS PRN PO FEVER > 100.3'F; Start 04/21/21 at 22:45; Stop 04/22/21 at 22:44 Active Scripts Active Vitamin B-12 (Cyanocobalamin (Vitamin B-12)) 1,000 Mcg Tablet 1,000 Mcg PO DAILY 30 Days Reported Janumet 50-1,000 Mg Tablet (Sitagliptin Phos/Metformin Hcl) 1 Each Tablet 1 Tab PO BIDWMEALS Losartan Potassium 100 Mg Tablet 100 Mg PO DAILY Atorvastatin Calcium 20 Mg Tablet 20 Mg PO HS Aspirin Ec (Aspirin) 81 Mg Tablet.dr 1 Tab PO DAILY Allergies Allergies: Coded Allergies: No Known Drug Allergies (Unverified , 10/04/17) ROS Review of System Negative for fever, chills, weight loss, shortness of breath, chest pain, indigestion, hematochezia, melena, and dysuria. Full 14-point review of systems is negative. Physical Exam Physical Examination General: Well-developed, well-nourished female in no acute distress HEENT: Normocephalic andatraumatic. Tympanic membranes clear.Temporal arteri espulsatile and nontender. Neck: Supple without bruit, no meningismus Musculoskeletal: Stability:see neurologic. Gait exam:see neurologic. Tone:see neurologic.Strength:see neurologic. Neurological: Mental Status:intact, orientation, memory, attention span/concentration, language, fund of knowledge normal. Speaks only Monegasque. Cranial Nerves:Pupils equal and reactive to light, extraocular movements areintact, visual rae are full to confrontation. Facial sensation is normal. There is no facial asymmetry. Vestibulo-ocular reflex is intact. No nystagmus evoked with head thrust, she gets dizzy with Manjit-Hallpike maneuver to either side, but I do not see nystagmus. Palate elevates and tongue protrudes in midline. All other cranial related problems are negative except as mentioned before.Reflexes:2+ and symmetric with flexor plantar responses. Motor:5/5 strength with normal tone and bulk. Coordination:Finger-nose finger and igdb-up-pccr testing are normal. Rapid alternating movements and fine finger movements are intact. Gait:Too dizzy to get up. Sensory:Stocking loss. Vitals VITALS Vital Signs Date Time Temp Pulse Resp B/P (MAP) Pulse Ox O2 Delivery O2 Flow Rate FiO2 04/22/21 03:00 99.0 102 18 133/72 (92) 95 99.0 04/21/21 23:30 Room Air Labs Labs Laboratory Tests Test 04/21/21 19:38 04/21/21 20:54 04/22/21 06:30 White Blood Count 11.7 x10^3/uL (4.0-11.0) 6.5 x10^3/uL (4.0-11.0) Red Blood Count 4.18 x10^6/uL (3.50-5.40) 3.77 x10^6/uL (3.50-5.40) Hemoglobin 9.9 g/dL (12.0-15.5) 9.1 g/dL (12.0-15.5) Hematocrit 31.9 % (36.0-47.0) 28.5 % (36.0-47.0) Mean Corpuscular Volume 76 fL (79-100) 76 fL (79-100) Mean Corpuscular Hemoglobin 24 pg (25-35) 24 pg (25-35) Mean Corpuscular Hemoglobin Concent 31 g/dL (31-37) 32 g/dL (31-37) Red Cell Distribution Width 17.3 % (11.5-14.5) 17.3 % (11.5-14.5) Platelet Count 411 x10^3/uL (140-400) 357 x10^3/uL (140-400) Neutrophils (%) (Auto) 62 % (31-73) 58 % (31-73) Lymphocytes (%) (Auto) 26 % (24-48) 29 % (24-48) Monocytes (%) (Auto) 8 % (0-9) 9 % (0-9) Eosinophils (%) (Auto) 3 % (0-3) 4 % (0-3) Basophils (%) (Auto) 1 % (0-3) 1 % (0-3) Neutrophils # (Auto) 7.3 x10^3/uL (1.8-7.7) 3.8 x10^3/uL (1.8-7.7) Lymphocytes # (Auto) 3.1 x10^3/uL (1.0-4.8) 1.9 x10^3/uL (1.0-4.8) Monocytes # (Auto) 0.9 x10^3/uL (0.0-1.1) 0.6 x10^3/uL (0.0-1.1) Eosinophils # (Auto) 0.3 x10^3/uL (0.0-0.7) 0.3 x10^3/uL (0.0-0.7) Basophils # (Auto) 0.2 x10^3/uL (0.0-0.2) 0.0 x10^3/uL (0.0-0.2) Sodium Level 138 mmol/L (136-145) 141 mmol/L (136-145) Potassium Level 4.3 mmol/L (3.5-5.1) 4.2 mmol/L (3.5-5.1) Chloride Level 101 mmol/L (98-107) 105 mmol/L (98-107) Carbon Dioxide Level 28 mmol/L (21-32) 33 mmol/L (21-32) Anion Gap 9 (6-14) 3 (6-14) Blood Urea Nitrogen 22 mg/dL (7-20) 18 mg/dL (7-20) Creatinine 0.9 mg/dL (0.6-1.0) 0.7 mg/dL (0.6-1.0) Estimated GFR (Cockcroft-Gault) 62.6 83.7 BUN/Creatinine Ratio 24 (6-20) Glucose Level 80 mg/dL (70-99) 128 mg/dL (70-99) Calcium Level 9.3 mg/dL (8.5-10.1) 9.3 mg/dL (8.5-10.1) Phosphorus Level 3.7 mg/dL (2.6-4.7) Magnesium Level 1.3 mg/dL (1.8-2.4) Total Bilirubin 0.2 mg/dL (0.2-1.0) Aspartate Amino Transf (AST/SGOT) 17 U/L (15-37) Alanine Aminotransferase (ALT/SGPT) 35 U/L (14-59) Alkaline Phosphatase 64 U/L (46-116) Troponin I Quantitative < 0.017 ng/mL (0.000-0.055) YS-Soq-I-Type Natriuretic Peptide 152 pg/mL (0-124) Total Protein 7.6 g/dL (6.4-8.2) Albumin 3.3 g/dL (3.4-5.0) Albumin/Globulin Ratio 0.8 (1.0-1.7) Urine Collection Type Unknown Urine Color Yellow Urine Clarity Cloudy Urine pH 5.5 (<5.0-8.0) Urine Specific [place] 1.010 (1.000-1.030) Urine Protein Negative mg/dL (NEG-TRACE) Urine Glucose (UA) Negative mg/dL (NEG) Urine Ketones (Stick) Negative mg/dL (NEG) Urine Blood Negative (NEG) Urine Nitrite Negative (NEG) Urine Bilirubin Negative (NEG) Urine Urobilinogen Dipstick 0.2 mg/dL (0.2 mg/dL) Urine Leukocyte Esterase Small (NEG) Urine RBC 0 /HPF (0-2) Urine WBC 11-20 /HPF (0-4) Urine Squamous Epithelial Cells Mod /LPF Urine Bacteria Few /HPF (0-FEW) Laboratory Tests Test 04/21/21 19:38 04/21/21 20:54 04/22/21 06:30 White Blood Count 11.7 x10^3/uL (4.0-11.0) 6.5 x10^3/uL (4.0-11.0) Red Blood Count 4.18 x10^6/uL (3.50-5.40) 3.77 x10^6/uL (3.50-5.40) Hemoglobin 9.9 g/dL (12.0-15.5) 9.1 g/dL (12.0-15.5) Hematocrit 31.9 % (36.0-47.0) 28.5 % (36.0-47.0) Mean Corpuscular Volume 76 fL (79-100) 76 fL (79-100) Mean Corpuscular Hemoglobin 24 pg (25-35) 24 pg (25-35) Mean Corpuscular Hemoglobin Concent 31 g/dL (31-37) 32 g/dL (31-37) Red Cell Distribution Width 17.3 % (11.5-14.5) 17.3 % (11.5-14.5) Platelet Count 411 x10^3/uL (140-400) 357 x10^3/uL (140-400) Neutrophils (%) (Auto) 62 % (31-73) 58 % (31-73) Lymphocytes (%) (Auto) 26 % (24-48) 29 % (24-48) Monocytes (%) (Auto) 8 % (0-9) 9 % (0-9) Eosinophils (%) (Auto) 3 % (0-3) 4 % (0-3) Basophils (%) (Auto) 1 % (0-3) 1 % (0-3) Neutrophils # (Auto) 7.3 x10^3/uL (1.8-7.7) 3.8 x10^3/uL (1.8-7.7) Lymphocytes # (Auto) 3.1 x10^3/uL (1.0-4.8) 1.9 x10^3/uL (1.0-4.8) Monocytes # (Auto) 0.9 x10^3/uL (0.0-1.1) 0.6 x10^3/uL (0.0-1.1) Eosinophils # (Auto) 0.3 x10^3/uL (0.0-0.7) 0.3 x10^3/uL (0.0-0.7) Basophils # (Auto) 0.2 x10^3/uL (0.0-0.2) 0.0 x10^3/uL (0.0-0.2) Sodium Level 138 mmol/L (136-145) 141 mmol/L (136-145) Potassium Level 4.3 mmol/L (3.5-5.1) 4.2 mmol/L (3.5-5.1) Chloride Level 101 mmol/L (98-107) 105 mmol/L (98-107) Carbon Dioxide Level 28 mmol/L (21-32) 33 mmol/L (21-32) Anion Gap 9 (6-14) 3 (6-14) Blood Urea Nitrogen 22 mg/dL (7-20) 18 mg/dL (7-20) Creatinine 0.9 mg/dL (0.6-1.0) 0.7 mg/dL (0.6-1.0) Estimated GFR (Cockcroft-Gault) 62.6 83.7 BUN/Creatinine Ratio 24 (6-20) Glucose Level 80 mg/dL (70-99) 128 mg/dL (70-99) Calcium Level 9.3 mg/dL (8.5-10.1) 9.3 mg/dL (8.5-10.1) Phosphorus Level 3.7 mg/dL (2.6-4.7) Magnesium Level 1.3 mg/dL (1.8-2.4) Total Bilirubin 0.2 mg/dL (0.2-1.0) Aspartate Amino Transf (AST/SGOT) 17 U/L (15-37) Alanine Aminotransferase (ALT/SGPT) 35 U/L (14-59) Alkaline Phosphatase 64 U/L (46-116) Troponin I Quantitative < 0.017 ng/mL (0.000-0.055) AS-Jqb-U-Type Natriuretic Peptide 152 pg/mL (0-124) Total Protein 7.6 g/dL (6.4-8.2) Albumin 3.3 g/dL (3.4-5.0) Albumin/Globulin Ratio 0.8 (1.0-1.7) Urine Collection Type Unknown Urine Color Yellow Urine Clarity Cloudy Urine pH 5.5 (<5.0-8.0) Urine Specific [place] 1.010 (1.000-1.030) Urine Protein Negative mg/dL (NEG-TRACE) Urine Glucose (UA) Negative mg/dL (NEG) Urine Ketones (Stick) Negative mg/dL (NEG) Urine Blood Negative (NEG) Urine Nitrite Negative (NEG) Urine Bilirubin Negative (NEG) Urine Urobilinogen Dipstick 0.2 mg/dL (0.2 mg/dL) Urine Leukocyte Esterase Small (NEG) Urine RBC 0 /HPF (0-2) Urine WBC 11-20 /HPF (0-4) Urine Squamous Epithelial Cells Mod /LPF Urine Bacteria Few /HPF (0-FEW) Images Images CT angiography of the head and neck INDICATION: Vertigo. COMPARISON: None. TECHNIQUE: Axial CT imaging of the head and neck utilizing angiography protocol and performed after the intravenous administration of contrast. Precontrast imaging through the head was performed as well. Multiplanar reformats and 3D MIP acquisitions were obtained. Encountered areas of stenosis are measured per NASCET criteria. One or more of the following individualized dose reduction techniques were utilized for this examination: 1. Automated exposure control 2. Adjustment of the mA and/or kV according to patient size 3. Use of iterative reconstruction technique. FINDINGS: CT HEAD: No acute intracranial hemorrhage. No CT evidence for an acute cortical infarction. No localized mass effect, midline shift or hydrocephalus. Parenchymal volume loss. Chronic focus of mineralization along the periphery of the right frontal lobe. White matter findings most frequently related to chronic microvascular ischemic change. Normally aerated mastoid air cells and paranasal sinuses. CTA NECK: Arch/Proximal Great Vessels: Scattered calcified and noncalcified atheromatous plaque. No dissection or aneurysm at the arch. Common origin of the brachiocephalic and left common carotid arteries. No ostial stenosis. No flow- limiting stenosis of either common carotid artery. Carotid Bifurcation/Cervical ICA: No hemodynamically significant stenosis of either cervical ICA in the setting of calcified and noncalcified atheromatous plaque at the right slightly more so than left carotid bifurcations. Vertebral Arteries: The left vertebral artery is slightly dominant. The proximal portion of both vertebral arteries are difficult to characterize due to patient body habitus and streak artifact. There is some calcific atherosclerosis at the right vertebral artery origin but without a definitive significant stenosis. No obvious dissection. A component of venous contamination also degrades the study. CTA HEAD: Posterior Circulation: The left intracranial vertebral artery is slightly dominant. Both vertebral arteries are patent and contribute to basilar flow. The basilar artery is patent. physiology on the right. Patent posterior communicating artery on the left as well but there is a faintly visualized left P1 segment. No occlusion or flow-limiting stenosis of the central posterior cerebral artery branches. The distal branches are not well evaluated. Anterior Circulation: Intracranial internal carotid artery calcific atherosclerosis. Mild/less than 50 percent resultant stenoses. No branch vessel occlusion or flow-limiting stenosis of the adequately assessed middle or anterior cerebral arteries. Veins: Patent dural sinuses. Developmentally hypoplastic transverse sinus on the right. MISCELLANEOUS: Mild groundglass infiltrates at the upper lungs. No well delineated solid nodule. No lymphadenopathy. Advanced multilevel degenerative changes of the visualized spine. At least mild to moderate central canal stenosis at most cervical levels. There is also narrowing of the canal at the upper thoracic s pine particularly at T2-T3. The extent of stenosis isn't fully characterized by technique. Varying degree of osseous neural foraminal stenosis at multiple levels. IMPRESSION: CT Head: 1. No acute intracranial hemorrhage or CT evidence for an acute cortical infarction. CT Angio Neck: 1. Limited evaluation due to patient body habitus particularly of the proximal vertebral arteries. 2. Taking the above into consideration, no dissection or hemodynamically significant stenosis seen throughout the neck. The vertebral arteries are relatively small which likely is in part from persistent physiology. 3. Advanced degenerative changes throughout the cervical and upper thoracic spine with at least moderate central canal stenosis at several levels but not f ully characterized. Mainly mild to moderate osseous neural foraminal stenosis as well. 4. Faint groundglass infiltrates at the upper lungs. These could be chronic though a mild atypical infectious process is possible in the appropriate clinical setting. Assessment/Plan Assessment/Plan Impression: Peripheral vertigo, examination is not localizing, but most likely she has bilateral benign paroxysmal positional vertigo. I find no evidence of any central vertigo. Particularly, there is no evidence that she has had a stroke. Cervical spondylosis Peripheral neuropathy, most likely from diabetes Recommendations: Scheduled meclizine Physical therapy, vestibular Consider outpatient vestibular testing She will need some outpatient physical therapy but she says her children all work so she can get a ride. She may end up needing inpatient half-way, then. Hold on MRI of the brain Thank you for letting me help with the patient's care. KERRI NOEL MD Apr 22, 2021 08:48
[2021-04-22] MEDS: MECLIZINE HCL 12.5 MG TABLET. PO SCH ×3 (10:57→20:53)
--- NOTE | 2021-04-22 11:34 | NUR ---
SW following. Discussed with RN, pt from home, room air, ada. PT/OT ordered. Neurology following. SW will continue to follow.
--- NOTE | 2021-04-22 15:46 | PDOC1 ---
History and Physical Date of Service: DOS: DATE: 04/22/21 TIME: 15:37 Chief Complaint: Chief Complain: Dizziness History of Present Illness: HPI: History obtained from discussion with the ED physician and chart review: 65 year old female coming in for 1 month of worsening dizziness. Patient states everything is spinning when she tries to get up. Patient states that when she lays down it improves but takes a very long time to completely go away and does not always completely go away. Denies any headaches or vision changes. Denies any diplopia. Patient states that 1 year ago she was admitted for anemia and felt the same at that time. Says the onset has been gradual worsening. Patient takes a baby aspirin daily but denies any other NSAIDs or blood thinners. Patient states that she has had black stools since she has been taking iron and denies any blood. States she had many tests done including an EGD which did not find a source of bleeding. Patient is fully vaccinated against Covid, received her second Pfizer vaccine about 2 months ago Past Medical/Surgical History: PMH/PSH: Past Medical History: Diabetes-Type II, Hypertension, Liver Disease, NEUROPATHY Past Surgical History: HERNIA REPAIR Smoking Status: Never Smoker Alcohol Use: None Drug Use: None Allergies: Allergies: Coded Allergies: No Known Drug Allergies (Unverified , 10/04/17) Family History: Family History: Reviewed with no relevant findings Social History: Social History: Smoking Status: Never Smoker Alcohol Use: None Drug Use: None Current Medications: Current Medications Current Medications Iohexol (Omnipaque 300 Mg/ml) 75 ml 1X ONCE IV Last administered on 04/21/21at 19:45; Start 04/21/21 at 19:45; Stop 04/21/21 at 19:53; Status DC Magnesium Sulfate 50 ml @ 25 mls/hr 1X ONCE IV Last administered on 04/21/21at 20:59; Start 04/21/21 at 20:45; Stop 04/21/21 at 22:44; Status DC Sodium Chloride 1,000 ml @ 1,000 mls/hr 1X ONCE IV Last administered on 04/21/21at 20:59; Start 04/21/21 at 20:45; Stop 04/21/21 at 21:44; Status DC Meclizine HCl (Antivert) 25 mg 1X ONCE PO Last administered on 04/21/21at 21:55; Start 04/21/21 at 21:15; Stop 04/21/21 at 21:16; Status DC Ondansetron HCl (Zofran) 4 mg PRN Q8HRS PRN IVP NAUSEA/VOMITING; Start 04/21/21 at 22:45; Stop 04/22/21 at 22:44 Morphine Sulfate (Morphine Sulfate) 2 mg PRN Q2HR PRN IVP PAIN; Start 04/21/21 at 22:45; Stop 04/22/21 at 22:44 Acetaminophen (Tylenol) 650 mg PRN Q4HRS PRN PO FEVER > 100.3'F; Start 04/21/21 at 22:45; Stop 04/22/21 at 22:44 Meclizine HCl (Antivert) 25 mg TID PO Last administered on 04/22/21at 15:16; Start 04/22/21 at 09:00 Active Scripts Active Vitamin B-12 (Cyanocobalamin (Vitamin B-12)) 1,000 Mcg Tablet 1,000 Mcg PO DAILY 30 Days Reported Janumet 50-1,000 Mg Tablet (Sitagliptin Phos/Metformin Hcl) 1 Each Tablet 1 Tab PO BIDWMEALS Losartan Potassium 100 Mg Tablet 100 Mg PO DAILY Atorvastatin Calcium 20 Mg Tablet 20 Mg PO HS Aspirin Ec (Aspirin) 81 Mg Tablet. 1 Tab PO DAILY ROS: Review of Systems Review of System REVIEW OF SYSTEMS: GENERAL: Denies weakness SKIN: No bruising, hair changes or rashes. EYES: No blurred, double or loss of vision. NOSE AND THROAT: No history of nosebleeds, hoarseness or sore throat. HEART: No history of palpitations, chest pain or shortness of breath on exertion. LUNGS: Denies cough, hemoptysis, wheezing or shortness of breath. GASTROINTESTINAL: Denies changes in appetite, nausea, vomiting, diarrhea or constipation. GENITOURINARY: No history of frequency, urgency, hesitancy or nocturia. NEUROLOGIC: Denies history of numbness, tingling, or tremor. PSYCHIATRIC: No history of panic, anxiety or depression. ENDOCRINE: No history of heat or cold intolerance, polyuria or polydipsia. EXTREMITIES: Denies joint pain, pain on walking or stiffness. Physical Exam: Vital Signs: Vital Signs Date Time Temp Pulse Resp B/P (MAP) Pulse Ox O2 Delivery O2 Flow Rate FiO2 9/20/21 11:00 98.0 94 18 143/77 (99) 96 98.0 04/22/21 08:00 Room Air Physcial Exam: General: Well developed, well nourished, no acute distress, well appearing HEENT: Pupils equally round and reactive to light, EOMI, no discharge, normal conjunctiva Neck: Supple, no nuchal rigidity, no JVD, trachea midline, no tenderness Cardiac: RRR, no murmurs, no gallops, no rubs Chest/Lungs: CTAB, no wheeze, no rhonchi, no crackles Abdomen: soft, non-distended, no guarding, no peritoneal signs, non-tender Back: No tenderness Extremities: no edema, pulses intact, non-tender,capillary refill <3 sec bilateral upper and lower extremities, Neuro: Alert and oriented. Vestibulo-ocular reflex is intact. No nystagmus evoked with head thrust, she gets dizzy with [place]-Hallpike maneuver to either side, but I do not see nystagmus Labs: Labs: Laboratory Tests Test 04/21/21 19:38 04/21/21 20:54 04/22/21 06:30 White Blood Count 11.7 x10^3/uL (4.0-11.0) 6.5 x10^3/uL (4.0-11.0) Red Blood Count 4.18 x10^6/uL (3.50-5.40) 3.77 x10^6/uL (3.50-5.40) Hemoglobin 9.9 g/dL (12.0-15.5) 9.1 g/dL (12.0-15.5) Hematocrit 31.9 % (36.0-47.0) 28.5 % (36.0-47.0) Mean Corpuscular Volume 76 fL (79-100) 76 fL (79-100) Mean Corpuscular Hemoglobin 24 pg (25-35) 24 pg (25-35) Mean Corpuscular Hemoglobin Concent 31 g/dL (31-37) 32 g/dL (31-37) Red Cell Distribution Width 17.3 % (11.5-14.5) 17.3 % (11.5-14.5) Platelet Count 411 x10^3/uL (140-400) 357 x10^3/uL (140-400) Neutrophils (%) (Auto) 62 % (31-73) 58 % (31-73) Lymphocytes (%) (Auto) 26 % (24-48) 29 % (24-48) Monocytes (%) (Auto) 8 % (0-9) 9 % (0-9) Eosinophils (%) (Auto) 3 % (0-3) 4 % (0-3) Basophils (%) (Auto) 1 % (0-3) 1 % (0-3) Neutrophils # (Auto) 7.3 x10^3/uL (1.8-7.7) 3.8 x10^3/uL (1.8-7.7) Lymphocytes # (Auto) 3.1 x10^3/uL (1.0-4.8) 1.9 x10^3/uL (1.0-4.8) Monocytes # (Auto) 0.9 x10^3/uL (0.0-1.1) 0.6 x10^3/uL (0.0-1.1) Eosinophils # (Auto) 0.3 x10^3/uL (0.0-0.7) 0.3 x10^3/uL (0.0-0.7) Basophils # (Auto) 0.2 x10^3/uL (0.0-0.2) 0.0 x10^3/uL (0.0-0.2) Sodium Level 138 mmol/L (136-145) 141 mmol/L (136-145) Potassium Level 4.3 mmol/L (3.5-5.1) 4.2 mmol/L (3.5-5.1) Chloride Level 101 mmol/L (98-107) 105 mmol/L (98-107) Carbon Dioxide Level 28 mmol/L (21-32) 33 mmol/L (21-32) Anion Gap 9 (6-14) 3 (6-14) Blood Urea Nitrogen 22 mg/dL (7-20) 18 mg/dL (7-20) Creatinine 0.9 mg/dL (0.6-1.0) 0.7 mg/dL (0.6-1.0) Estimated GFR (Cockcroft-Gault) 62.6 83.7 BUN/Creatinine Ratio 24 (6-20) Glucose Level 80 mg/dL (70-99) 128 mg/dL (70-99) Calcium Level 9.3 mg/dL (8.5-10.1) 9.3 mg/dL (8.5-10.1) Phosphorus Level 3.7 mg/dL (2.6-4.7) Magnesium Level 1.3 mg/dL (1.8-2.4) Total Bilirubin 0.2 mg/dL (0.2-1.0) Aspartate Amino Transf (AST/SGOT) 17 U/L (15-37) Alanine Aminotransferase (ALT/SGPT) 35 U/L (14-59) Alkaline Phosphatase 64 U/L (46-116) Troponin I Quantitative < 0.017 ng/mL (0.000-0.055) BC-Zdw-S-Type Natriuretic Peptide 152 pg/mL (0-124) Total Protein 7.6 g/dL (6.4-8.2) Albumin 3.3 g/dL (3.4-5.0) Albumin/Globulin Ratio 0.8 (1.0-1.7) Urine Collection Type Unknown Urine Color Yellow Urine Clarity Cloudy Urine pH 5.5 (<5.0-8.0) Urine Specific [place] 1.010 (1.000-1.030) Urine Protein Negative mg/dL (NEG-TRACE) Urine Glucose (UA) Negative mg/dL (NEG) Urine Ketones (Stick) Negative mg/dL (NEG) Urine Blood Negative (NEG) Urine Nitrite Negative (NEG) Urine Bilirubin Negative (NEG) Urine Urobilinogen Dipstick 0.2 mg/dL (0.2 mg/dL) Urine Leukocyte Esterase Small (NEG) Urine RBC 0 /HPF (0-2) Urine WBC 11-20 /HPF (0-4) Urine Squamous Epithelial Cells Mod /LPF Urine Bacteria Few /HPF (0-FEW) Laboratory Tests Test 04/21/21 19:38 04/21/21 20:54 04/22/21 06:30 White Blood Count 11.7 x10^3/uL (4.0-11.0) 6.5 x10^3/uL (4.0-11.0) Red Blood Count 4.18 x10^6/uL (3.50-5.40) 3.77 x10^6/uL (3.50-5.40) Hemoglobin 9.9 g/dL (12.0-15.5) 9.1 g/dL (12.0-15.5) Hematocrit 31.9 % (36.0-47.0) 28.5 % (36.0-47.0) Mean Corpuscular Volume 76 fL (79-100) 76 fL (79-100) Mean Corpuscular Hemoglobin 24 pg (25-35) 24 pg (25-35) Mean Corpuscular Hemoglobin Concent 31 g/dL (31-37) 32 g/dL (31-37) Red Cell Distribution Width 17.3 % (11.5-14.5) 17.3 % (11.5-14.5) Platelet Count 411 x10^3/uL (140-400) 357 x10^3/uL (140-400) Neutrophils (%) (Auto) 62 % (31-73) 58 % (31-73) Lymphocytes (%) (Auto) 26 % (24-48) 29 % (24-48) Monocytes (%) (Auto) 8 % (0-9) 9 % (0-9) Eosinophils (%) (Auto) 3 % (0-3) 4 % (0-3) Basophils (%) (Auto) 1 % (0-3) 1 % (0-3) Neutrophils # (Auto) 7.3 x10^3/uL (1.8-7.7) 3.8 x10^3/uL (1.8-7.7) Lymphocytes # (Auto) 3.1 x10^3/uL (1.0-4.8) 1.9 x10^3/uL (1.0-4.8) Monocytes # (Auto) 0.9 x10^3/uL (0.0-1.1) 0.6 x10^3/uL (0.0-1.1) Eosinophils # (Auto) 0.3 x10^3/uL (0.0-0.7) 0.3 x10^3/uL (0.0-0.7) Basophils # (Auto) 0.2 x10^3/uL (0.0-0.2) 0.0 x10^3/uL (0.0-0.2) Sodium Level 138 mmol/L (136-145) 141 mmol/L (136-145) Potassium Level 4.3 mmol/L (3.5-5.1) 4.2 mmol/L (3.5-5.1) Chloride Level 101 mmol/L (98-107) 105 mmol/L (98-107) Carbon Dioxide Level 28 mmol/L (21-32) 33 mmol/L (21-32) Anion Gap 9 (6-14) 3 (6-14) Blood Urea Nitrogen 22 mg/dL (7-20) 18 mg/dL (7-20) Creatinine 0.9 mg/dL (0.6-1.0) 0.7 mg/dL (0.6-1.0) Estimated GFR (Cockcroft-Gault) 62.6 83.7 BUN/Creatinine Ratio 24 (6-20) Glucose Level 80 mg/dL (70-99) 128 mg/dL (70-99) Calcium Level 9.3 mg/dL (8.5-10.1) 9.3 mg/dL (8.5-10.1) Phosphorus Level 3.7 mg/dL (2.6-4.7) Magnesium Level 1.3 mg/dL (1.8-2.4) Total Bilirubin 0.2 mg/dL (0.2-1.0) Aspartate Amino Transf (AST/SGOT) 17 U/L (15-37) Alanine Aminotransferase (ALT/SGPT) 35 U/L (14-59) Alkaline Phosphatase 64 U/L (46-116) Troponin I Quantitative < 0.017 ng/mL (0.000-0.055) OG-Uvb-T-Type Natriuretic Peptide 152 pg/mL (0-124) Total Protein 7.6 g/dL (6.4-8.2) Albumin 3.3 g/dL (3.4-5.0) Albumin/Globulin Ratio 0.8 (1.0-1.7) Urine Collection Type Unknown Urine Color Yellow Urine Clarity Cloudy Urine pH 5.5 (<5.0-8.0) Urine Specific [place] 1.010 (1.000-1.030) Urine Protein Negative mg/dL (NEG-TRACE) Urine Glucose (UA) Negative mg/dL (NEG) Urine Ketones (Stick) Negative mg/dL (NEG) Urine Blood Negative (NEG) Urine Nitrite Negative (NEG) Urine Bilirubin Negative (NEG) Urine Urobilinogen Dipstick 0.2 mg/dL (0.2 mg/dL) Urine Leukocyte Esterase Small (NEG) Urine RBC 0 /HPF (0-2) Urine WBC 11-20 /HPF (0-4) Urine Squamous Epithelial Cells Mod /LPF Urine Bacteria Few /HPF (0-FEW) Images: Images CT Angio Head: 1. No large vessel occlusion or central flow-limiting stenosis seen throughout t he anterior or posterior cerebral circulation to help explain the patient's reported vertigo. Consider MRI if there is further concern. CT Head: 1. No acute intracranial hemorrhage or CT evidence for an acute cortical infarction. Assessment/Plan Assessment/Plan Hypertensive urgency Prerenal azotemia Hypomagnesemia Peripheral vertigo, examination is not localizing, most likely BPPV History of diabetes mellitus History of hypertension Admit to hospitalist service for further management Neurology consult Recommends vestibular exercises and PT OT SCD for DVT prophylaxis ADA diet CODE STATUS full Discussed with RN and SW Disposition inpatient management as above DPOA: Justifications for Admission Other Justification REGINA WALL MD Apr 22, 2021 15:46
[2021-04-22] MEDS ORDERED: SENNOSIDES 8.6 MG TABLET PO PRN (16:00)
[2021-04-22] MEDS ORDERED: PROCHLORPERAZINE 10 MG/2 ML VIAL. IV PRN (16:00)
[2021-04-22] MEDS ORDERED: ACETAMINOPHEN 325 MG TABLET. PO PRN (16:00)
[2021-04-22] MEDS ORDERED: DEXTROSE 50% 25 GM / 50ML DISP.SYRIN. IV PRN (16:00)
[2021-04-22] MEDS ORDERED: DOCUSATE SODIUM 100 MG CAPSULE. PO PRN (16:00)
[2021-04-22] MEDS: LOSARTAN POTASSIUM 50 MG TABLET. PO SCH (16:48)
[2021-04-22] MEDS: CYANOCOBALAMIN (VITAMIN B-12) 1,000 MCG TABLET. PO SCH (16:48)
[2021-04-22] MEDS: ASPIRIN ENTERIC COATED 81 MG TABLET.DR. PO SCH (16:48)
[2021-04-22] MEDS: IV NORMAL SALINE 1000ML BAG 1,000 ML IV SCH (16:49)
[2021-04-22] MEDS: INSULIN LISPRO 300 UNITS/3 ML VIAL. SQ SCH (16:58)
[2021-04-22] MEDS: ATORVASTATIN CALCIUM 20 MG TABLET PO SCH (20:53)
[2021-04-23 03:36] VITALS: BP 124/71
[2021-04-23] MEDS: IV NORMAL SALINE 1000ML BAG 1,000 ML IV SCH ×3 (05:01→16:59)
[2021-04-23 07:00] VITALS: BP 134/65
[2021-04-23 07:16] LABS: BASO % 1 % (0-3); EOS # 0.3 x10^3/uL (0.0-0.7); EOS % 4 % (0-3); HEMATOCRIT 29.6 % (36.0-47.0); HEMOGLOBIN 9.5 g/dL (12.0-15.5); LYMPH # 1.7 x10^3/uL (1.0-4.8); LYMPH % 27 % (24-48); MEAN CORPUSCULAR HEMOGLOBIN 24 pg (25-35); MEAN CORPUSCULAR HGB CONC 32 g/dL (31-37); MEAN CORPUSCULAR VOLUME 76 fL (79-100); MONO # 0.6 x10^3/uL (0.0-1.1); MONO % 9 % (0-9); NEUT # 3.8 x10^3/uL (1.8-7.7); NEUT % 59 % (31-73); PLATELET COUNT 368 x10^3/uL (140-400); RED BLOOD COUNT 3.89 x10^6/uL (3.50-5.40); RED CELL DISTRIBUTION WIDTH 17.6 % (11.5-14.5); WHITE BLOOD COUNT 6.4 x10^3/uL (4.0-11.0)
[2021-04-23 07:25] LABS: CALCIUM 9.2 mg/dL (8.5-10.1); CREATININE 0.8 mg/dL (0.6-1.0); GFR 71.8; MAGNESIUM 1.6 mg/dL (1.8-2.4); PHOSPHORUS 4.3 mg/dL (2.6-4.7); POTASSIUM 4.4 mmol/L (3.5-5.1)
[2021-04-23] MEDS: INSULIN LISPRO 300 UNITS/3 ML VIAL. SQ SCH ×3 (08:00→17:02)
[2021-04-23] MEDS ORDERED: MAGNESIUM SULFATE 2GM 50 ML IV ONE (09:00)
[2021-04-23] MEDS: LOSARTAN POTASSIUM 50 MG TABLET. PO SCH (10:36)
[2021-04-23] MEDS: CYANOCOBALAMIN (VITAMIN B-12) 1,000 MCG TABLET. PO SCH (10:36)
[2021-04-23] MEDS: ASPIRIN ENTERIC COATED 81 MG TABLET.DR. PO SCH (10:36)
[2021-04-23] MEDS: MECLIZINE HCL 12.5 MG TABLET. PO SCH ×3 (10:36→20:41)
[2021-04-23 11:00] VITALS: BP 145/65
[2021-04-23] MEDS ORDERED: MECL12.582 PO (11:35)
[2021-04-23] MEDS ORDERED: ONDA4TAB7 PO (11:35)
--- NOTE | 2021-04-23 11:38 | DISCH ---
DISCHARGE INSTRUCTIONS Condition on Discharge Condition on Discharge: Stable Activity After Discharge Activity Instructions for Disc: No restrictions, Activity as tolerated Lifting Instructions after Dis: Do not lift >10 pounds Exercise Instruction after Dis: Progress as tolerated Driving Instructions after Dis: Do not drive Weight Bearing Status after Di: Full weight bearing, As tolerated Diet after Discharge Diet after Discharge: Cardiac Diet Texture: Regular Liquid Texture: Thin Liquid Swallowing Supervision: None needed Checks after Discharge Checks after discharge: Check blood press - daily, Check blood sugar, ac/hs Follow-Up Follow up with: PCP within 2 weeks of discharge Follow Up With: outpatient physical therapy or neurology as needed Treatment/Equipment after DC Adaptive Equipment Issued: None Discharge Respiratory Equipmen: REGINA Escoto MD Apr 23, 2021 11:38
--- NOTE | 2021-04-23 12:10 | PDOC ---
PROGRESS NOTES Date of Service DATE: 04/23/21 TIME: 12:07 Assessment Problems Medical Problems: (1) Vertigo Status: Acute Peripheral vertigo, examination is not localizing, but most likely she has bilateral benign paroxysmal positional vertigo. I find no evidence of any central vertigo. Particularly, there is no evidence that she has had a stroke. She is a little bit better with meclizine and had 1 physical therapy session today, physical therapy was ordered yesterday for vestibular therapy and there were no vestibular interventions done. Cervical spondylosis Peripheral neuropathy, most likely from diabetes Plan Scheduled meclizine Physical therapy, vestibular Consider outpatient vestibular testing She will need some outpatient physical therapy but she says her children all work so she can get a ride. She may end up needing inpatient long term, then. Hold on MRI of the brain Discussed with Dr. Proctor Subjective Dizziness is just a little bit better Objective Vital Signs Date Time Temp Pulse Resp B/P (MAP) Pulse Ox O2 Delivery O2 Flow Rate FiO2 04/23/21 11:00 97.8 67 18 145/65 (91) 97 Room Air 97.8 Intake and Output 04/23/21 07:00 Intake Total 420 ml Balance 420 ml Intake Oral 420 ml # Voids 5 PHYSICAL EXAM Alert. Oriented to time, place and person. PERRL. EOMI. CN: no focal findings. No nystagmus with [place]-Hallpike or head thrust, but very symptomatic, less so t martin yesterday Muscle tone: normal. Muscle strength: 5/5 DTR: 2+ Plantar reflex: Flexor Gait: Unsteady, falls to either side Sensory exam: Stocking loss. No cerebellar signs elicited. Review of Relevant I have reviewed the following items raya (where applicable) has been applied. Labs Laboratory Tests Test 04/21/21 19:38 04/21/21 20:54 04/22/21 06:30 04/22/21 16:10 White Blood Count 11.7 x10^3/uL (4.0-11.0) 6.5 x10^3/uL (4.0-11.0) Red Blood Count 4.18 x10^6/uL (3.50-5.40) 3.77 x10^6/uL (3.50-5.40) Hemoglobin 9.9 g/dL (12.0-15.5) 9.1 g/dL (12.0-15.5) Hematocrit 31.9 % (36.0-47.0) 28.5 % (36.0-47.0) Mean Corpuscular Volume 76 fL (79-100) 76 fL (79-100) Mean Corpuscular Hemoglobin 24 pg (25-35) 24 pg (25-35) Mean Corpuscular Hemoglobin Concent 31 g/dL (31-37) 32 g/dL (31-37) Red Cell Distribution Width 17.3 % (11.5-14.5) 17.3 % (11.5-14.5) Platelet Count 411 x10^3/uL (140-400) 357 x10^3/uL (140-400) Neutrophils (%) (Auto) 62 % (31-73) 58 % (31-73) Lymphocytes (%) (Auto) 26 % (24-48) 29 % (24-48) Monocytes (%) (Auto) 8 % (0-9) 9 % (0-9) Eosinophils (%) (Auto) 3 % (0-3) 4 % (0-3) Basophils (%) (Auto) 1 % (0-3) 1 % (0-3) Neutrophils # (Auto) 7.3 x10^3/uL (1.8-7.7) 3.8 x10^3/uL (1.8-7.7) Lymphocytes # (Auto) 3.1 x10^3/uL (1.0-4.8) 1.9 x10^3/uL (1.0-4.8) Monocytes # (Auto) 0.9 x10^3/uL (0.0-1.1) 0.6 x10^3/uL (0.0-1.1) Eosinophils # (Auto) 0.3 x10^3/uL (0.0-0.7) 0.3 x10^3/uL (0.0-0.7) Basophils # (Auto) 0.2 x10^3/uL (0.0-0.2) 0.0 x10^3/uL (0.0-0.2) Sodium Level 138 mmol/L (136-145) 141 mmol/L (136-145) Potassium Level 4.3 mmol/L (3.5-5.1) 4.2 mmol/L (3.5-5.1) Chloride Level 101 mmol/L (98-107) 105 mmol/L (98-107) Carbon Dioxide Level 28 mmol/L (21-32) 33 mmol/L (21-32) Anion Gap 9 (6-14) 3 (6-14) Blood Urea Nitrogen 22 mg/dL (7-20) 18 mg/dL (7-20) Creatinine 0.9 mg/dL (0.6-1.0) 0.7 mg/dL (0.6-1.0) Estimated GFR (Cockcroft-Gault) 62.6 83.7 BUN/Creatinine Ratio 24 (6-20) Glucose Level 80 mg/dL (70-99) 128 mg/dL (70-99) Calcium Level 9.3 mg/dL (8.5-10.1) 9.3 mg/dL (8.5-10.1) Phosphorus Level 3.7 mg/dL (2.6-4.7) Magnesium Level 1.3 mg/dL (1.8-2.4) Total Bilirubin 0.2 mg/dL (0.2-1.0) Aspartate Amino Transf (AST/SGOT) 17 U/L (15-37) Alanine Aminotransferase (ALT/SGPT) 35 U/L (14-59) Alkaline Phosphatase 64 U/L (46-116) Troponin I Quantitative < 0.017 ng/mL (0.000-0.055) SL-Rot-U-Type Natriuretic Peptide 152 pg/mL (0-124) Total Protein 7.6 g/dL (6.4-8.2) Albumin 3.3 g/dL (3.4-5.0) Albumin/Globulin Ratio 0.8 (1.0-1.7) Urine Collection Type Unknown Urine Color Yellow Urine Clarity Cloudy Urine pH 5.5 (<5.0-8.0) Urine Specific [place] 1.010 (1.000-1.030) Urine Protein Negative mg/dL (NEG-TRACE) Urine Glucose (UA) Negative mg/dL (NEG) Urine Ketones (Stick) Negative mg/dL (NEG) Urine Blood Negative (NEG) Urine Nitrite Negative (NEG) Urine Bilirubin Negative (NEG) Urine Urobilinogen Dipstick 0.2 mg/dL (0.2 mg/dL) Urine Leukocyte Esterase Small (NEG) Urine RBC 0 /HPF (0-2) Urine WBC 11-20 /HPF (0-4) Urine Squamous Epithelial Cells Mod /LPF Urine Bacteria Few /HPF (0-FEW) Glucose (Fingerstick) 205 mg/dL (70-99) Test 04/22/21 19:57 04/23/21 06:30 04/23/21 07:54 04/23/21 11:18 Glucose (Fingerstick) 185 mg/dL (70-99) 141 mg/dL (70-99) 200 mg/dL (70-99) White Blood Count 6.4 x10^3/uL (4.0-11.0) Red Blood Count 3.89 x10^6/uL (3.50-5.40) Hemoglobin 9.5 g/dL (12.0-15.5) Hematocrit 29.6 % (36.0-47.0) Mean Corpuscular Volume 76 fL (79-100) Mean Corpuscular Hemoglobin 24 pg (25-35) Mean Corpuscular Hemoglobin Concent 32 g/dL (31-37) Red Cell Distribution Width 17.6 % (11.5-14.5) Platelet Count 368 x10^3/uL (140-400) Neutrophils (%) (Auto) 59 % (31-73) Lymphocytes (%) (Auto) 27 % (24-48) Monocytes (%) (Auto) 9 % (0-9) Eosinophils (%) (Auto) 4 % (0-3) Basophils (%) (Auto) 1 % (0-3) Neutrophils # (Auto) 3.8 x10^3/uL (1.8-7.7) Lymphocytes # (Auto) 1.7 x10^3/uL (1.0-4.8) Monocytes # (Auto) 0.6 x10^3/uL (0.0-1.1) Eosinophils # (Auto) 0.3 x10^3/uL (0.0-0.7) Basophils # (Auto) 0.0 x10^3/uL (0.0-0.2) Sodium Level 142 mmol/L (136-145) Potassium Level 4.4 mmol/L (3.5-5.1) Chloride Level 105 mmol/L (98-107) Carbon Dioxide Level 33 mmol/L (21-32) Anion Gap 4 (6-14) Blood Urea Nitrogen 14 mg/dL (7-20) Creatinine 0.8 mg/dL (0.6-1.0) Estimated GFR (Cockcroft-Gault) 71.8 Glucose Level 142 mg/dL (70-99) Calcium Level 9.2 mg/dL (8.5-10.1) Phosphorus Level 4.3 mg/dL (2.6-4.7) Magnesium Level 1.6 mg/dL (1.8-2.4) Laboratory Tests Test 04/22/21 16:10 04/22/21 19:57 04/23/21 06:30 04/23/21 07:54 Glucose (Fingerstick) 205 mg/dL (70-99) 185 mg/dL (70-99) 141 mg/dL (70-99) White Blood Count 6.4 x10^3/uL (4.0-11.0) Red Blood Count 3.89 x10^6/uL (3.50-5.40) Hemoglobin 9.5 g/dL (12.0-15.5) Hematocrit 29.6 % (36.0-47.0) Mean Corpuscular Volume 76 fL (79-100) Mean Corpuscular Hemoglobin 24 pg (25-35) Mean Corpuscular Hemoglobin Concent 32 g/dL (31-37) Red Cell Distribution Width 17.6 % (11.5-14.5) Platelet Count 368 x10^3/uL (140-400) Neutrophils (%) (Auto) 59 % (31-73) Lymphocytes (%) (Auto) 27 % (24-48) Monocytes (%) (Auto) 9 % (0-9) Eosinophils (%) (Auto) 4 % (0-3) Basophils (%) (Auto) 1 % (0-3) Neutrophils # (Auto) 3.8 x10^3/uL (1.8-7.7) Lymphocytes # (Auto) 1.7 x10^3/uL (1.0-4.8) Monocytes # (Auto) 0.6 x10^3/uL (0.0-1.1) Eosinophils # (Auto) 0.3 x10^3/uL (0.0-0.7) Basophils # (Auto) 0.0 x10^3/uL (0.0-0.2) Sodium Level 142 mmol/L (136-145) Potassium Level 4.4 mmol/L (3.5-5.1) Chloride Level 105 mmol/L (98-107) Carbon Dioxide Level 33 mmol/L (21-32) Anion Gap 4 (6-14) Blood Urea Nitrogen 14 mg/dL (7-20) Creatinine 0.8 mg/dL (0.6-1.0) Estimated GFR (Cockcroft-Gault) 71.8 Glucose Level 142 mg/dL (70-99) Calcium Level 9.2 mg/dL (8.5-10.1) Phosphorus Level 4.3 mg/dL (2.6-4.7) Magnesium Level 1.6 mg/dL (1.8-2.4) Test 04/23/21 11:18 Glucose (Fingerstick) 200 mg/dL (70-99) Medications Current Medications Iohexol (Omnipaque 300 Mg/ml) 75 ml 1X ONCE IV Last administered on 04/21/21at 19:45; Start 04/21/21 at 19:45; Stop 04/21/21 at 19:53; Status DC Magnesium Sulfate 50 ml @ 25 mls/hr 1X ONCE IV Last administered on 04/21/21at 20:59; Start 04/21/21 at 20:45; Stop 04/21/21 at 22:44; Status DC Sodium Chloride 1,000 ml @ 1,000 mls/hr 1X ONCE IV Last administered on 04/21/21at 20:59; Start 04/21/21 at 20:45; Stop 04/21/21 at 21:44; Status DC Meclizine HCl (Antivert) 25 mg 1X ONCE PO Last administered on 04/21/21at 21:55; Start 04/21/21 at 21:15; Stop 04/21/21 at 21:16; Status DC Ondansetron HCl (Zofran) 4 mg PRN Q8HRS PRN IVP NAUSEA/VOMITING; Start 04/21/21 at 22:45; Stop 04/22/21 at 15:52; Status DC Morphine Sulfate (Morphine Sulfate) 2 mg PRN Q2HR PRN IVP PAIN; Start 04/21/21 at 22:45; Stop 04/22/21 at 22:44; Status DC Acetaminophen (Tylenol) 650 mg PRN Q4HRS PRN PO FEVER > 100.3'F; Start 04/21/21 at 22:45; Stop 04/22/21 at 15:52; Status DC Meclizine HCl (Antivert) 25 mg TID PO Last administered on 04/23/21at 10:36; Start 04/22/21 at 09:00 Aspirin (Ecotrin) 81 mg DAILY PO Last administered on 04/23/21at 10:36; Start 04/22/21 at 16:00 Atorvastatin Calcium (Lipitor) 20 mg HS PO Last administered on 04/22/21at 20:53; Start 04/22/21 at 21:00 Cyanocobalamin (Vitamin B-12) 1,000 mcg DAILY PO Last administered on 04/23/21at 10:36; Start 04/22/21 at 16:00 Losartan Potassium (Cozaar) 100 mg DAILY PO Last administered on 04/23/21at 10:36; Start 04/22/21 at 16:00 Sennosides (Senna) 17.2 mg PRN BID PRN PO CONSTIPATION; Start 04/22/21 at 16:00 Docusate Sodium (Colace) 100 mg PRN DAILY PRN PO HARD STOOLS; Start 04/22/21 at 16:00 Ondansetron HCl (Zofran) 4 mg PRN Q6HRS PRN IVP NAUSEA/VOMITING; Start 04/22/21 at 16:00 Insulin Human Lispro (HumaLOG) 0-7 UNITS TIDWMEALS SQ Last administered on 04/22/21at 16:58; Start 04/22/21 at 17:00 Dextrose (Dextrose 50%-Water Syringe) 12.5 gm PRN Q15MIN PRN IV SEE COMMENTS; Start 04/22/21 at 16:00 Sodium Chloride 1,000 ml @ 100 mls/hr Q10H IV Last administered on 04/23/21at 05:01; Start 04/22/21 at 16:00 Acetaminophen (Tylenol) 650 mg PRN Q4HRS PRN PO TEMP OVER 100.4F OR MILD PAIN; Start 04/22/21 at 16:00 Prochlorperazine Edisylate (Compazine) 10 mg PRN Q6HRS PRN IV NAUSEA/VOMITING, 2ND CHOICE; Start 04/22/21 at 16:00 Magnesium Sulfate 50 ml @ 25 mls/hr 1X ONCE IV Last administered on 04/23/21at 10:35; Start 04/23/21 at 09:00; Stop 04/23/21 at 10:59; Status DC Active Scripts Active Zofran (Ondansetron Hcl) 4 Mg Tablet 1 Tab PO Q8HRS 30 Days Meclizine Hcl 12.5 Mg Tablet 25 Mg PO TID 30 Days Vitamin B-12 (Cyanocobalamin (Vitamin B-12)) 1,000 Mcg Tablet 1,000 Mcg PO DAILY 30 Days Reported Janumet 50-1,000 Mg Tablet (Sitagliptin Phos/Metformin Hcl) 1 Each Tablet 1 Tab PO BIDWMEALS Losartan Potassium 100 Mg Tablet 100 Mg PO DAILY Atorvastatin Calcium 20 Mg Tablet 20 Mg PO HS Aspirin Ec (Aspirin) 81 Mg Tablet.dr 1 Tab PO DAILY Vitals/I & O Vital Sign - Last 24 Hours 04/22/21 04/22/21 04/22/21 04/22/21 15:00 16:48 19:00 20:00 Temp 97.9 98.7 97.9 98.7 Pulse 82 94 76 Resp 18 18 B/P (MAP) 141/69 (93) 143/77 142/67 (92) Pulse Ox 94 96 O2 Delivery Room Air Room Air 04/22/21 04/23/21 04/23/21 04/23/21 22:55 03:36 07:00 10:36 Temp 98.5 97.9 98.7 98.5 97.9 98.7 Pulse 65 66 84 84 Resp 18 18 18 B/P (MAP) 132/53 (79) 124/71 (88) 134/65 (88) 134/65 Pulse Ox 95 96 95 O2 Delivery Room Air Room Air Room Air 04/23/21 11:00 Temp 97.8 97.8 Pulse 67 Resp 18 B/P (MAP) 145/65 (91) Pulse Ox 97 O2 Delivery Room Air Intake and Output 04/22/21 04/22/21 04/23/21 15:00 23:00 07:00 Intake Total 300 ml 120 ml Balance 300 ml 120 ml Justicifation of Admission Dx: Justifications for Admission: Justification of Admission Dx: Yes KERRI NOEL MD Apr 23, 2021 12:10
[2021-04-23] MEDS: ONDANSETRON PF 4 MG/2 ML VIAL. IVP PRN (12:19)
--- NOTE | 2021-04-23 14:13 | NUR ---
1200 insulin held d/t patient too nauseated to eat after vestibular therapy
[2021-04-23 15:00] VITALS: BP 130/61
[2021-04-23 19:00] VITALS: BP 178/86
[2021-04-23] MEDS: ATORVASTATIN CALCIUM 20 MG TABLET PO SCH (20:41)
[2021-04-23 23:00] VITALS: BP 143/67
[2021-04-24] MEDS: IV NORMAL SALINE 1000ML BAG 1,000 ML IV SCH (02:59)
[2021-04-24 03:00] VITALS: BP 131/64
[2021-04-24 07:00] VITALS: BP 148/64
[2021-04-24 07:20] LABS: BASO % 1 % (0-3); EOS # 0.3 x10^3/uL (0.0-0.7); EOS % 5 % (0-3); HEMATOCRIT 30.1 % (36.0-47.0); HEMOGLOBIN 9.3 g/dL (12.0-15.5); LYMPH # 1.5 x10^3/uL (1.0-4.8); LYMPH % 25 % (24-48); MEAN CORPUSCULAR HEMOGLOBIN 24 pg (25-35); MEAN CORPUSCULAR HGB CONC 31 g/dL (31-37); MEAN CORPUSCULAR VOLUME 76 fL (79-100); MONO # 0.6 x10^3/uL (0.0-1.1); MONO % 9 % (0-9); NEUT # 3.8 x10^3/uL (1.8-7.7); NEUT % 61 % (31-73); PLATELET COUNT 359 x10^3/uL (140-400); RED BLOOD COUNT 3.94 x10^6/uL (3.50-5.40); RED CELL DISTRIBUTION WIDTH 17.3 % (11.5-14.5); WHITE BLOOD COUNT 6.3 x10^3/uL (4.0-11.0)
[2021-04-24 07:38] LABS: CALCIUM 8.6 mg/dL (8.5-10.1); CREATININE 0.8 mg/dL (0.6-1.0); GFR 71.8; MAGNESIUM 1.8 mg/dL (1.8-2.4); POTASSIUM 4.4 mmol/L (3.5-5.1)
[2021-04-24] MEDS: INSULIN LISPRO 300 UNITS/3 ML VIAL. SQ SCH ×2 (08:00→12:10)
--- NOTE | 2021-04-24 08:49 | PDOC ---
PROGRESS NOTES Date of Service DATE: 04/24/21 TIME: 08:45 Assessment Problems Medical Problems: (1) Vertigo Status: Acute Peripheral vertigo, examination is not localizing, but most likely she has bilateral benign paroxysmal positional vertigo. Agree with Mr. Delcid that this is an atypical presentation. He tried canalith repositioning which did not help. Patient tells me that she has been using a walker for several years because of spine problems Cervical spondylosis Peripheral neuropathy, most likely from diabetes Plan MRI of the brain Home today if negative Scheduled meclizine, stop after 2 weeks. Try to arrange outpatient vestibular physical therapy Consider outpatient vestibular testing patient has no insurance Subjective Still dizzy Objective Vital Signs Date Time Temp Pulse Resp B/P (MAP) Pulse Ox O2 Delivery O2 Flow Rate FiO2 04/24/21 07:00 97.9 75 18 148/64 (92) 96 Room Air 97.9 Intake and Output 04/24/21 07:00 Intake Total 880 ml Output Total 750 ml Balance 130 ml Intake Oral 880 ml Output Urine Total 750 ml PHYSICAL EXAM Alert. Oriented to time, place and person. PERRL. EOMI. CN: no focal findings. No nystagmus with [place] or head thrust, but still symptomatic with these maneuvers Muscle tone: normal. Muscle strength: 5/5 DTR: 2+ Plantar reflex: Flexor Gait: Unsteady, falls to either side Sensory exam: Stocking loss. No cerebellar signs elicited. Review of Relevant I have reviewed the following items raya (where applicable) has been applied. Labs Laboratory Tests Test 04/22/21 16:10 04/22/21 19:57 04/23/21 06:30 04/23/21 07:54 Glucose (Fingerstick) 205 mg/dL (70-99) 185 mg/dL (70-99) 141 mg/dL (70-99) White Blood Count 6.4 x10^3/uL (4.0-11.0) Red Blood Count 3.89 x10^6/uL (3.50-5.40) Hemoglobin 9.5 g/dL (12.0-15.5) Hematocrit 29.6 % (36.0-47.0) Mean Corpuscular Volume 76 fL (79-100) Mean Corpuscular Hemoglobin 24 pg (25-35) Mean Corpuscular Hemoglobin Concent 32 g/dL (31-37) Red Cell Distribution Width 17.6 % (11.5-14.5) Platelet Count 368 x10^3/uL (140-400) Neutrophils (%) (Auto) 59 % (31-73) Lymphocytes (%) (Auto) 27 % (24-48) Monocytes (%) (Auto) 9 % (0-9) Eosinophils (%) (Auto) 4 % (0-3) Basophils (%) (Auto) 1 % (0-3) Neutrophils # (Auto) 3.8 x10^3/uL (1.8-7.7) Lymphocytes # (Auto) 1.7 x10^3/uL (1.0-4.8) Monocytes # (Auto) 0.6 x10^3/uL (0.0-1.1) Eosinophils # (Auto) 0.3 x10^3/uL (0.0-0.7) Basophils # (Auto) 0.0 x10^3/uL (0.0-0.2) Sodium Level 142 mmol/L (136-145) Potassium Level 4.4 mmol/L (3.5-5.1) Chloride Level 105 mmol/L (98-107) Carbon Dioxide Level 33 mmol/L (21-32) Anion Gap 4 (6-14) Blood Urea Nitrogen 14 mg/dL (7-20) Creatinine 0.8 mg/dL (0.6-1.0) Estimated GFR (Cockcroft-Gault) 71.8 Glucose Level 142 mg/dL (70-99) Calcium Level 9.2 mg/dL (8.5-10.1) Phosphorus Level 4.3 mg/dL (2.6-4.7) Magnesium Level 1.6 mg/dL (1.8-2.4) Test 04/23/21 11:18 04/23/21 16:11 04/23/21 20:47 04/24/21 06:45 Glucose (Fingerstick) 200 mg/dL (70-99) 196 mg/dL (70-99) 167 mg/dL (70-99) White Blood Count 6.3 x10^3/uL (4.0-11.0) Red Blood Count 3.94 x10^6/uL (3.50-5.40) Hemoglobin 9.3 g/dL (12.0-15.5) Hematocrit 30.1 % (36.0-47.0) Mean Corpuscular Volume 76 fL (79-100) Mean Corpuscular Hemoglobin 24 pg (25-35) Mean Corpuscular Hemoglobin Concent 31 g/dL (31-37) Red Cell Distribution Width 17.3 % (11.5-14.5) Platelet Count 359 x10^3/uL (140-400) Neutrophils (%) (Auto) 61 % (31-73) Lymphocytes (%) (Auto) 25 % (24-48) Monocytes (%) (Auto) 9 % (0-9) Eosinophils (%) (Auto) 5 % (0-3) Basophils (%) (Auto) 1 % (0-3) Neutrophils # (Auto) 3.8 x10^3/uL (1.8-7.7) Lymphocytes # (Auto) 1.5 x10^3/uL (1.0-4.8) Monocytes # (Auto) 0.6 x10^3/uL (0.0-1.1) Eosinophils # (Auto) 0.3 x10^3/uL (0.0-0.7) Basophils # (Auto) 0.0 x10^3/uL (0.0-0.2) Sodium Level 141 mmol/L (136-145) Potassium Level 4.4 mmol/L (3.5-5.1) Chloride Level 104 mmol/L (98-107) Carbon Dioxide Level 32 mmol/L (21-32) Anion Gap 5 (6-14) Blood Urea Nitrogen 14 mg/dL (7-20) Creatinine 0.8 mg/dL (0.6-1.0) Estimated GFR (Cockcroft-Gault) 71.8 Glucose Level 157 mg/dL (70-99) Calcium Level 8.6 mg/dL (8.5-10.1) Magnesium Level 1.8 mg/dL (1.8-2.4) Test 04/24/21 07:17 Glucose (Fingerstick) 135 mg/dL (70-99) Laboratory Tests Test 04/23/21 11:18 04/23/21 16:11 04/23/21 20:47 04/24/21 06:45 Glucose (Fingerstick) 200 mg/dL (70-99) 196 mg/dL (70-99) 167 mg/dL (70-99) White Blood Count 6.3 x10^3/uL (4.0-11.0) Red Blood Count 3.94 x10^6/uL (3.50-5.40) Hemoglobin 9.3 g/dL (12.0-15.5) Hematocrit 30.1 % (36.0-47.0) Mean Corpuscular Volume 76 fL (79-100) Mean Corpuscular Hemoglobin 24 pg (25-35) Mean Corpuscular Hemoglobin Concent 31 g/dL (31-37) Red Cell Distribution Width 17.3 % (11.5-14.5) Platelet Count 359 x10^3/uL (140-400) Neutrophils (%) (Auto) 61 % (31-73) Lymphocytes (%) (Auto) 25 % (24-48) Monocytes (%) (Auto) 9 % (0-9) Eosinophils (%) (Auto) 5 % (0-3) Basophils (%) (Auto) 1 % (0-3) Neutrophils # (Auto) 3.8 x10^3/uL (1.8-7.7) Lymphocytes # (Auto) 1.5 x10^3/uL (1.0-4.8) Monocytes # (Auto) 0.6 x10^3/uL (0.0-1.1) Eosinophils # (Auto) 0.3 x10^3/uL (0.0-0.7) Basophils # (Auto) 0.0 x10^3/uL (0.0-0.2) Sodium Level 141 mmol/L (136-145) Potassium Level 4.4 mmol/L (3.5-5.1) Chloride Level 104 mmol/L (98-107) Carbon Dioxide Level 32 mmol/L (21-32) Anion Gap 5 (6-14) Blood Urea Nitrogen 14 mg/dL (7-20) Creatinine 0.8 mg/dL (0.6-1.0) Estimated GFR (Cockcroft-Gault) 71.8 Glucose Level 157 mg/dL (70-99) Calcium Level 8.6 mg/dL (8.5-10.1) Magnesium Level 1.8 mg/dL (1.8-2.4) Test 04/24/21 07:17 Glucose (Fingerstick) 135 mg/dL (70-99) Microbiology 04/21/21 Urine Culture - Final, Complete Medications Current Medications Iohexol (Omnipaque 300 Mg/ml) 75 ml 1X ONCE IV Last administered on 04/21/21at 19:45; Start 04/21/21 at 19:45; Stop 04/21/21 at 19:53; Status DC Magnesium Sulfate 50 ml @ 25 mls/hr 1X ONCE IV Last administered on 04/21/21at 20:59; Start 04/21/21 at 20:45; Stop 04/21/21 at 22:44; Status DC Sodium Chloride 1,000 ml @ 1,000 mls/hr 1X ONCE IV Last administered on 04/21/21at 20:59; Start 04/21/21 at 20:45; Stop 04/21/21 at 21:44; Status DC Meclizine HCl (Antivert) 25 mg 1X ONCE PO Last administered on 04/21/21at 21:55; Start 04/21/21 at 21:15; Stop 04/21/21 at 21:16; Status DC Ondansetron HCl (Zofran) 4 mg PRN Q8HRS PRN IVP NAUSEA/VOMITING; Start 04/21/21 at 22:45; Stop 04/22/21 at 15:52; Status DC Morphine Sulfate (Morphine Sulfate) 2 mg PRN Q2HR PRN IVP PAIN; Start 04/21/21 at 22:45; Stop 04/22/21 at 22:44; Status DC Acetaminophen (Tylenol) 650 mg PRN Q4HRS PRN PO FEVER > 100.3'F; Start 04/21/21 at 22:45; Stop 04/22/21 at 15:52; Status DC Meclizine HCl (Antivert) 25 mg TID PO Last administered on 04/23/21at 20:41; Start 04/22/21 at 09:00 Aspirin (Ecotrin) 81 mg DAILY PO Last administered on 04/23/21at 10:36; Start 04/22/21 at 16:00 Atorvastatin Calcium (Lipitor) 20 mg HS PO Last administered on 04/23/21at 20:41; Start 04/22/21 at 21:00 Cyanocobalamin (Vitamin B-12) 1,000 mcg DAILY PO Last administered on 04/23/21at 10:36; Start 04/22/21 at 16:00 Losartan Potassium (Cozaar) 100 mg DAILY PO Last administered on 04/23/21at 10:36; Start 04/22/21 at 16:00 Sennosides (Senna) 17.2 mg PRN BID PRN PO CONSTIPATION; Start 04/22/21 at 16:00 Docusate Sodium (Colace) 100 mg PRN DAILY PRN PO HARD STOOLS; Start 04/22/21 at 16:00 Ondansetron HCl (Zofran) 4 mg PRN Q6HRS PRN IVP NAUSEA/VOMITING Last administered on 04/23/21at 12:19; Start 04/22/21 at 16:00 Insulin Human Lispro (HumaLOG) 0-7 UNITS TIDWMEALS SQ Last administered on 04/23/21at 17:02; Start 04/22/21 at 17:00 Dextrose (Dextrose 50%-Water Syringe) 12.5 gm PRN Q15MIN PRN IV SEE COMMENTS; Start 04/22/21 at 16:00 Sodium Chloride 1,000 ml @ 100 mls/hr Q10H IV Last administered on 04/24/21at 02:59; Start 04/22/21 at 16:00 Acetaminophen (Tylenol) 650 mg PRN Q4HRS PRN PO TEMP OVER 100.4F OR MILD PAIN; Start 04/22/21 at 16:00 Prochlorperazine Edisylate (Compazine) 10 mg PRN Q6HRS PRN IV NAUSEA/VOMITING, 2ND CHOICE; Start 04/22/21 at 16:00 Magnesium Sulfate 50 ml @ 25 mls/hr 1X ONCE IV Last administered on 04/23/21at 10:35; Start 04/23/21 at 09:00; Stop 04/23/21 at 10:59; Status DC Active Scripts Active Zofran (Ondansetron Hcl) 4 Mg Tablet 1 Tab PO Q8HRS 30 Days Meclizine Hcl 12.5 Mg Tablet 25 Mg PO TID 30 Days Vitamin B-12 (Cyanocobalamin (Vitamin B-12)) 1,000 Mcg Tablet 1,000 Mcg PO DAILY 30 Days Reported Janumet 50-1,000 Mg Tablet (Sitagliptin Phos/Metformin Hcl) 1 Each Tablet 1 Tab PO BIDWMEALS Losartan Potassium 100 Mg Tablet 100 Mg PO DAILY Atorvastatin Calcium 20 Mg Tablet 20 Mg PO HS Aspirin Ec (Aspirin) 81 Mg Tablet.dr 1 Tab PO DAILY Vitals/I & O Vital Sign - Last 24 Hours 04/23/21 04/23/21 04/23/21 04/23/21 10:36 11:00 15:00 19:00 Temp 97.8 99.4 98.2 97.8 99.4 98.2 Pulse 84 67 89 67 Resp 18 18 20 B/P (MAP) 134/65 145/65 (91) 130/61 (84) 178/86 (116) Pulse Ox 97 95 98 O2 Delivery Room Air Room Air Room Air 04/23/21 04/23/21 04/24/21 04/24/21 20:00 23:00 03:00 07:00 Temp 98.7 98.1 97.9 98.7 98.1 97.9 Pulse 76 81 75 Resp 20 20 18 B/P (MAP) 143/67 (92) 131/64 (86) 148/64 (92) Pulse Ox 95 95 96 O2 Delivery Room Air Room Air Room Air Room Air Intake and Output 04/23/21 04/23/21 04/24/21 15:00 23:00 07:00 Intake Total 320 ml 320 ml 240 ml Output Total 300 ml 450 ml Balance 320 ml 20 ml -210 ml Justicifation of Admission Dx: Justifications for Admission: Justification of Admission Dx: Yes KERRI NOEL MD Apr 24, 2021 08:49
[2021-04-24] MEDS: MECLIZINE HCL 12.5 MG TABLET. PO SCH ×2 (09:14→13:40)
[2021-04-24] MEDS: ASPIRIN ENTERIC COATED 81 MG TABLET.DR. PO SCH (09:14)
[2021-04-24] MEDS: CYANOCOBALAMIN (VITAMIN B-12) 1,000 MCG TABLET. PO SCH (09:15)
--- NOTE | 2021-04-24 10:28 | RAD ---
EXAM: Brain MRI without contrast. HISTORY: Vertigo. TECHNIQUE: Multiplanar, multisequence magnetic resonance imaging of the brain was performed without c ontrast. COMPARISON: 04/21/2021 FINDINGS: There is no restricted diffusion to suggest acute or subacute infarction. There is a focus of susceptibility effect within the right frontal lobe cortex due to calcification or chronic microhe morrhage. There is no mass effect. There is no hydrocephalus. There is right frontal lobe volume loss and associated rightward anterior midline shift involving the frontal lobes and asymmetry in the siz e of the left greater than right frontal bone. There is nonspecific signal change within the cerebral white matter, likely due to chronic small vessel disease. There is evidence of lens surgery. There i s paranasal sinus mucosal thickening. The mastoid air cells are clear. There are normal flow voids wi thin the cerebral vessels. IMPRESSION: 1. No acute intracranial finding. 2. Right frontal predominant cerebral volume loss and nonspecific signal change within the cerebral w mark likely matter due to chronic small vessel disease. Electronically signed by: Ashley Santiago MD (04/24/2021 10:26 AM) [facility]
[2021-04-24 11:00] VITALS: BP 117/48
--- NOTE | 2021-04-24 11:37 | NUR ---
SW following. Discussed with RN, pt from home, room air, ada diet. Pt having an MRI today, and can discharge after. SW consult for arranging outpatient vestibular therapy for pt. SW advised to RN that pt will need to call around some therapy offices to determine the cost due to pt being self pay. SW will continue to follow.
[2021-04-24] MEDS: ONDANSETRON PF 4 MG/2 ML VIAL. IVP PRN (13:36)
[2021-04-24] MEDS ORDERED: MECL12.582 PO (13:52)
--- NOTE | 2021-04-24 15:00 | NUR ---
patient discharged home with son. education on vestibular therapy provided in print in [facility]. meds and follow up reviewed. IV removed intact. pt stable upon dc.
[2021-04-24] MEDS ORDERED: LOSARTAN POTASSIUM 50 MG TABLET. PO SCH (21:00)
--- NOTE | 2021-04-26 20:56 | PDOC3 ---
[facility]-Discharge Summary Date of Admission: Date of Admission: Apr 22, 2021 Date of Discharge: Date of Discharge: Apr 25, 2021 Discharge Diagnosis: Discharge Diagnosis: Hypertensive urgency Prerenal azotemia Hypomagnesemia Peripheral vertigo, examination is not localizing, most likely BPPV History of diabetes mellitus History of hypertension Consults: Consults: Neuro recs: Plan MRI of the brain Home today if negative Scheduled meclizine, stop after 2 weeks. Try to arrange outpatient vestibular physical therapy Consider outpatient vestibular testing patient has no insurance Hospital Course: Hospital Course: 65 year old female coming in for 1 month of worsening dizziness. Patient st ates everything is spinning when she tries to get up. Patient states that when she lays down it improves but takes a very long time to completely go away and does not always completely go away. Denies any headaches or vision changes. Denies any diplopia. Patient states that 1 year ago she was admitted for anemia and felt the same at that time. Says the onset has been gradual worsening. Patient takes a baby aspirin daily but denies any other NSAIDs or blood thinners. Patient states that she has had black stools since she has been taking iron and denies any blood. States she had many tests done including an EGD which did not find a source of bleeding. Patient is fully vaccinated against Covid, received her second Pfizer vaccine about 2 months ago Multiple attempts of [place] maneuvers were done with me and the medical studnets. PT also did some vestibular exercises. By day of discharge, pt was clinically stable and ready for discharge. Rest of hospital course was uneventful Disposition: Disposition/Orders: D/C to Home Activity: Activity: Resume previous activity Diet: Diet: Cardiac Medications: Home Meds Active Scripts Meclizine Hcl (MECLIZINE HCL) 12.5 Mg Tablet, 25 MG PO TID for vertigo and dizziness for 14 Days, #84 TAB 1 Refill Prov:REGINA WALL MD 04/24/21 Ondansetron Hcl (ZOFRAN) 4 Mg Tablet, 1 TAB PO Q8HRS for nausea and vomiting for 30 Days, #90 TAB 1 Refill Prov:REGINA WALL MD 04/23/21 Cyanocobalamin (Vitamin B-12) (VITAMIN B-12) 1,000 Mcg Tablet, 1000 MCG PO DAILY for B12 deficiency for 30 Days, #30 TAB 11 Refills Prov:RIFFEL,CHRISTOPHER S MD 04/06/20 Reported Medications Sitagliptin Phos/Metformin Hcl (JANUMET 50-1,000 MG TABLET) 1 Each Tablet, 1 TAB PO BIDWMEALS for fsbs, #60 TAB 5 Refills 04/05/20 Losartan Potassium (LOSARTAN POTASSIUM) 100 Mg Tablet, 100 MG PO DAILY for HYP ERTENSION, TAB 04/05/20 Atorvastatin Calcium (ATORVASTATIN CALCIUM) 20 Mg Tablet, 20 MG PO HS for FOR CHOLESTEROL, #30 TAB 0 Refills 04/05/20 Aspirin (ASPIRIN EC) 81 Mg Tablet.dr, 1 TAB PO DAILY for heart, #30 TAB 3 Refills 04/05/20 Scheduled Aspirin (Aspirin Ec), 1 TAB PO DAILY, (Reported) Atorvastatin Calcium (Atorvastatin Calcium), 20 MG PO HS, (Reported) Cyanocobalamin (Vitamin B-12) (Vitamin B-12), 1,000 MCG PO DAILY Losartan Potassium (Losartan Potassium), 100 MG PO DAILY, (Reported) Meclizine Hcl (Meclizine Hcl), 25 MG PO TID Ondansetron Hcl (Zofran), 1 TAB PO Q8HRS Sitagliptin Phos/Metformin Hcl (Janumet 50-1,000 Mg Tablet), 1 TAB PO BIDWMEALS, (Reported) Total Time: Total Time: Total time spent was 33 minutes in preparing scripts, discharge planning with SW and RN, and preparing this discharge summary. Patient seen and examined on day of discharge. Justicifation of Admission Dx: Justifications for Admission: Justification of Admission Dx: Yes REGINA WALL MD Apr 26, 2021 20:56
--- NOTE | 2021-04-26 20:59 | PDOC ---
[facility] PROGRESS NOTE Date of Service DOS: DATE: 04/24/21 TIME: 20:58 Chief Complaint Chief Complaint Assessment/Plan Hypertensive urgency Prerenal azotemia Hypomagnesemia Peripheral vertigo, examination is not localizing, most likely BPPV History of diabetes mellitus History of hypertension Admit to hospitalist service for further management Neurology consult Recommends vestibular exercises and PT OT SCD for DVT prophylaxis ADA diet CODE STATUS full Discussed with RN and SW Disposition inpatient management as above DPOA: History of Present Illness History of Present Illness 65 year old female coming in for 1 month of worsening dizziness. Patient states everything is spinning when she tries to get up. Patient states that when she lays down it improves but takes a very long time to completely go away and does not always completely go away. Denies any headaches or vision changes. Denies any diplopia. Patient states that 1 year ago she was admitted for anemia and felt the same at that time. Says the onset has been gradual worsening. Patient takes a baby aspirin daily but denies any other NSAIDs or blood thinners. Patient states that she has had black stools since she has been taking iron and denies any blood. States she had many tests done including an EGD which did not find a source of bleeding. Patient is fully vaccinated against Covid, received her second Pfizer vaccine about 2 months ago 04/24/21 Still complained of dizziness and vertigo. Unable to stand Physical Exam General: Alert, Oriented X3 Heart: Regular rate Lungs: Clear Abdomen: No tenderness Extremities: No edema Skin: No significant lesion Assessment and Plan Assessmemt and Plan Problems Medical Problems: (1) Vertigo Status: Acute Comment Review of Relevant I have reviewed the following items raya (where applicable) has been applied. Justifications for Admission Other Justification Hypertensive urgency REGINA WALL MD Apr 26, 2021 20:59
--- NOTE | 2021-04-26 21:10 | PDOC ---
[facility] PROGRESS NOTE Date of Service DOS: DATE: 04/23/21 TIME: 21:09 Chief Complaint Chief Complaint Assessment/Plan Hypertensive urgency Prerenal azotemia Hypomagnesemia Peripheral vertigo, examination is not localizing, most likely BPPV History of diabetes mellitus History of hypertension Admit to hospitalist service for further management Neurology consult Recommends vestibular exercises and PT OT SCD for DVT prophylaxis ADA diet CODE STATUS full Discussed with RN and SW Disposition inpatient management as above DPOA: History of Present Illness History of Present Illness 65 year old female coming in for 1 month of worsening dizziness. Patient states everything is spinning when she tries to get up. Patient states that when she lays down it improves but takes a very long time to completely go away and does not always completely go away. Denies any headaches or vision changes. Denies any diplopia. Patient states that 1 year ago she was admitted for anemia and felt the same at that time. Says the onset has been gradual worsening. Patient takes a baby aspirin daily but denies any other NSAIDs or blood thinners. Patient states that she has had black stools since she has been taking iron and denies any blood. States she had many tests done including an EGD which did not find a source of bleeding. Patient is fully vaccinated against Covid, received her second Pfizer vaccine about 2 months ago 04/23/21 MRI brain ordered and negative for any acute infarcts. Physical Exam General: Alert, Oriented X3 Heart: Regular rate Lungs: Clear Abdomen: No tenderness Extremities: No edema Skin: No significant lesion Assessment and Plan Assessmemt and Plan Problems Medical Problems: (1) Vertigo Status: Acute Comment Review of Relevant I have reviewed the following items raya (where applicable) has been applied. Justifications for Admission Other Justification Hypertensive urgency REGINA WALL MD Apr 26, 2021 21:10
== END 2021-04-24 15:00 | disposition home or self-care (01) | DRG 149 ==
LOC: ER 16:48 → 5 SOUTH 22:00 → OBSVTOIN 22:00
PROVIDERS: ADMIT Family Medicine; ATTEND Family Medicine
DX: H81.13 Benign paroxysmal vertigo, bilateral (principal); I16.0 Hypertensive urgency; E78.5 Hyperlipidemia, unspecified; E83.42 Hypomagnesemia; I11.0 Hypertensive heart disease with heart failure; I50.9 Heart failure, unspecified; M47.812 Spondylosis without myelopathy or radiculopathy, cervical region; E11.42 Type 2 diabetes mellitus with diabetic polyneuropathy; M48.04 Spinal stenosis, thoracic region; Z79.82 Long term (current) use of aspirin; F32.9 Major depressive disorder, single episode, unspecified; F41.9 Anxiety disorder, unspecified
CPT/HCPCS: 36415; 70450; 70496; 70498; 70551; 71045; 80048; 80053; 81001; 82962; 83735; 83880; 84100; 84484; 85025; 87086; 93005; 96365; J1815; J2405; J3475; J7030; Q9967; 95992-GP; 97116-GP; 97530-GP; 97535-GO; 99285-25; G0378; J8597